=== PATIENT | male | born 1930 | race Caucasian/White ===

== ENCOUNTER 2017-06-13 23:19 | Inpatient (IN) ==
--- NOTE | 2017-06-13 23:29 | Emergency Department Report ---
General Adult HPI - General Stated complaint: L Hip Poss Fract Time Seen by Provider: 06/13/17 23:29 Source: patient, EMS Mode of arrival: EMS Limitations: no limitations - History of Present Illness HPI narrative: 86-year-old male presents to the emergency department with the chief complaint of pain in his left hip. Patient has been experiencing left hip pain for the past week following a fall. Patient suffered another mechanical fall today. Patient states that he was in the bathroom getting up off the stool when he felt a sharp pain in his hip when he twisted causing him to fall and land on his left hip. He denies striking his head, neck pain, or loss of consciousness. He denies any other injury. Pain is moderate. Pain is dull. No radiation. Pain improves with rest and positioning and increases with movement. Patient does note that the pain improved with Fentanyl given by EMS prior to arrival to the ED. No other complaints or associated symptoms. He was at home when the incident occurred. Symptoms have been persistent in nature since onset. - Related Data Home Medications Medication Instructions Recorded Confirmed Simvastatin [Zocor] 20 mg PO HS #0 12/28/08 06/14/17 Glucosamine/D3/Boswellia Lulu 1 each PO DAILY #0 06/22/12 06/14/17 [Osteo Bi-Flex Caplet] Levothyroxine Sodium 25 mcg PO DAILY #0 08/22/14 06/14/17 Cholecalciferol (Vitamin D3) 2,000 unit PO DAILY 06/08/17 06/14/17 [Vitamin D3] Dabigatran [Pradaxa] 150 mg PO BID 06/08/17 06/14/17 Furosemide [Lasix] 40 mg PO DAILY 06/08/17 06/14/17 Lisinopril [Zestril] 5 mg PO DAILY 06/08/17 06/14/17 Multivit-Min/FA/Lycopen/Lutein 1 each PO DAILY 06/08/17 06/14/17 [Centrum Silver Tablet] Primidone [Mysoline] 100 mg PO TID 06/08/17 06/14/17 Vitamin B Complex Vit C No.4 1 tab PO DAILY 06/08/17 06/14/17 [Super B Complex] Allergies Allergy/AdvReac Type Severity Reaction Status Date / Time No Known Allergies Allergy Verified 06/14/17 00:53 Review of Systems Constitutional: Denies: fever, chills Eyes: Denies: eye pain, vision change ENT: Denies: ear pain, throat pain Cardiovascular: Denies: chest pain, palpitations Respiratory: Denies: cough, dyspnea Gastrointestinal: Denies: abdominal pain, nausea, vomiting, diarrhea Genitourinary: Denies: urgency, dysuria Musculoskeletal: Reports: arthralgia. Denies: back pain Integumentary: Denies: erythema, rash Neurological: Denies: headache, numbness, paresthesias Psychiatric: Denies: anxiety, depression Endocrine: Denies: polydipsia, polyuria Hematological/Lymphatic: Denies: easy bruising, lymphadenopathy Allergic/Immunologic: Denies: facial swelling, urticaria PFSH Patient Stated Medical History Cataracts Yes Glaucoma Yes Hx Benign Prostatic Yes Hyperplasia Osteoarthritis Yes: MILD Other Infectious Yes: NON HEALING FOOT WOUND Clinic Medical History (Last Reviewed 06/14/17 @ 04:06 by Faraz Quezada MD) HTN (hypertension) (Acute Medical) Idiopathic peripheral neuropathy (Acute Medical) Prostate cancer (Acute Medical) Tremor (Acute Medical) Congestive heart failure (Chronic Medical) Surgical History: Prostate Surgery. Pacemaker. Left Shoulder Surgery Family History: Family History (Last Reviewed 04/16/17 @ 09:47 by Tamara Eldridge MA) Mother Aneurysm Father Diabetes Sister Diabetes - Social History Smoking status: Never smoker Substance use type: does not use Alcohol intake frequency: a few times a month Housing: house Physical Exam - Limitations Limitations: no limitations - General General appearance: alert, in no apparent distress - Normal Exams: Head:: Normocephalic without trauma Eyes:: Pupils are PERRLA w/ EOMI, No scleral icterus, irritation, or foreign bodies noted ENMT:: No facial trauma, nasal exudates, pharyngeal erythema, or exudates are noted Dental: No fractured, loose, or missing teeth noted Neck:: Full range of motion (No midline tenderness or deformity of the cervical spine.), without adenopathy, JVD, bruits or thyromegaly Chest/Respirations:: Clear all hernandez, with good airflow, and symmetry bilaterally Cardiovascular:: Regular rate and rhythm, without murmur or gallop, Pulses 2+ all extremities, capillary refill, <2 seconds all extremities Abdomen:: Bowel sounds positive, soft, non-tender, non-distended, no hepatosplenomegaly, masses or bruits noted Lymphatic:: No lymphadenopathy, or lymphedema noted Musculoskeletal:: No tenderness (left hip - decreased range of motion secondary to pain. Generalized tenderness to palpation over the hip. Is intact. Sensation intact. Capillary refill less than 2. Skin is intact. No erythema. No edema. No other tenderness in the left lower extremity. All other extremities are unremarkable.), or deformity noted (back - no midline tenderness or deformity of the thoracic/lumbar spine.), good range of motion, all extremities Integumentary:: No rashes, hives, or bruising noted, hair and nails, without abnormality Neurological:: Patient is alert, and oriented, cranial nerves, motor/sensory/ cerebellar, exams w/o gross deficits, to observation Psychiatric:: Patient exhibits, appropriate attention, emotion and affect Course Vital Signs Temperature 98.7 F 06/13/17 23:21 Pulse Rate 87 06/13/17 23:21 Respiratory Rate 18 06/13/17 23:21 Blood Pressure 142/80 H 06/13/17 23:21 Pulse Oximetry 97 06/13/17 23:21 Temperature 96.5 F L 06/14/17 02:08 Pulse Rate 68 06/14/17 02:17 Respiratory Rate 18 06/14/17 02:17 Blood Pressure 134/73 06/14/17 02:15 Pulse Oximetry 95 06/14/17 02:17 Medical Decision Making - [facility] Narrative Medical decision making narrative: Imaging was reviewed in detail with the patient and family and questions are answered. He was given analgesic pain medication intravenously within 1 hour of arrival to the emergency department. Patient was discussed with Dr. Garcia of orthopedic surgery and recommendations are followed. Patient was discussed with Dr. Epperson of the hospitalist service and admitted to the service of Dr. Collier in improved condition. Dr. Quezada will perform the medical clearance at the time of admission due to the busy nature of the ED. Patient and family are in agreement with the current plan of management. Patient is admitted to the hospital in improved condition. No further orders from accepting or consulting physicians who were in agreement with the current plan of management. - Differential Diagnosis sprain, strain, fracture, dislocation - Radiology Data Pelvis with Left Hip X-ray - left femoral neck fracture. Disposition Clinical Impression: Fracture of hip Qualifiers: Encounter type: initial encounter Fracture type: closed Laterality: left Qualified Code(s): S72.002A - Fracture of unspecified part of neck of left femur , initial encounter for closed fracture [place]: [place] [facility] [place] Condition: Stable Time of Disposition: 01:00 (Admit. Dr. Quezada. ) - Seen By: physician
[2017-06-13] MEDS ORDERED: FentaNYL 100 MCG/2 ML INJECTION IVP ONE (23:35)
[2017-06-14] MEDS ORDERED: FentaNYL 100 MCG/2 ML INJECTION IVP ONE (01:03)
[2017-06-14] MEDS ORDERED: ONDANSETRON 4 MG/2 ML INJECTION IVP PRN (02:33)
[2017-06-14] MEDS: LR 1,000 ML IV SCH ×4 (02:39→23:27)
[2017-06-14 02:46] VITALS: BMI 26.3
[2017-06-14] MEDS: HYDROMORPHONE 2 MG/ML INJECTION IVP PRN ×3 (03:00→07:24)
--- NOTE | 2017-06-14 04:07 | History & Physical Report ---
History of Present Illness Date: 06/14/17 Chief complaint: hip pain HPI: The pt is a 86 yo otherwise very active gentleman who fell one week ago and was evaluated with a X-ray was told the hip was normal. Tonight the pt had a sudden pain in the left hip and fell backwards landing on his "butt". His son came to help him and call 911 and was brought to the ER where L hip films reveal hip hip fracture. Review of Systems All systems PM: 10-point ROS was reviewed, no additional remarkable complaints except Past Medical History Medical History: Medical History (Last Reviewed 06/14/17 @ 04:06 by Faraz Quezada MD) HTN (hypertension) Idiopathic peripheral neuropathy Prostate cancer Tremor Congestive heart failure Surgical History: Prostate Surgery. Pacemaker. Left Shoulder Surgery Family History: Family History (Last Reviewed 04/16/17 @ 09:47 by Tamara Eldridge MA) Mother Aneurysm Father Diabetes Sister Diabetes Family History: As Above (ok) - Social History Smoking status: Never smoker Medications Home Medications Medication Instructions Recorded Confirmed Type Simvastatin [Zocor] 20 mg PO HS #0 12/28/08 06/14/17 History Glucosamine/D3/Boswellia Lulu 1 each PO DAILY #0 06/22/12 06/14/17 History [Osteo Bi-Flex Caplet] Levothyroxine Sodium 25 mcg PO DAILY #0 08/22/14 06/14/17 History Cholecalciferol (Vitamin D3) 2,000 unit PO DAILY 06/08/17 06/14/17 History [Vitamin D3] Dabigatran [Pradaxa] 150 mg PO BID 06/08/17 06/14/17 History Furosemide [Lasix] 40 mg PO DAILY 06/08/17 06/14/17 History Lisinopril [Zestril] 5 mg PO DAILY 06/08/17 06/14/17 History Multivit-Min/FA/Lycopen/Lutein 1 each PO DAILY 06/08/17 06/14/17 History [Centrum Silver Tablet] Primidone [Mysoline] 100 mg PO TID 06/08/17 06/14/17 History Vitamin B Complex Vit C No.4 1 tab PO DAILY 06/08/17 06/14/17 History [Super B Complex] Allergies Allergy/AdvReac Type Severity Reaction Status Date / Time No Known Allergies Allergy Verified 06/14/17 00:53 Exam Vital Signs: Temperature 96.5 F L 06/14/17 02:08 Pulse Rate 68 06/14/17 02:17 Respiratory Rate 18 06/14/17 02:17 Blood Pressure 147/74 H 06/14/17 02:08 Pulse Oximetry 95 06/14/17 02:17 Height/Weight/BMI: Height 1.83 m Weight 88.1 kg Body Mass Index 26.3 - Constitutional Present: no acute distress, well nourished, well developed - Routine HEENT Exam Head: Present: normocephalic - Routine Neck Exam Present: supple - Routine Respiratory Exam Present: CTA bilaterally. Absent: accessory muscle use - Routine Cardiovascular Exam Present: RRR, no murmur - Routine Abdominal Exam Present: soft, normoactive bowel sounds, non tender - Routine Skin Exam Present: intact - Routine Neurological Exam Present: alert, oriented X3 Assessment and Plan (1) Hip fracture Current visit: Yes Status: Acute Assessment and Plan: will admit for pain control, ortho has been consulted, NPO for possible surgery in am, IVF,The pt is clear medically for surgery. - Physician Narrative Narrative: Date: 06/14/17 Time: 0404 Hospital Course Summary Disclaimer: The visit summary below is not to be considered part of the above Progress Note.
[2017-06-14] MEDS: ACETAMINOPHEN 325 MG TABLET PO PRN ×2 (10:29→16:51)
[2017-06-14] MEDS: LISINOPRIL 5 MG TABLET PO SCH (10:41)
[2017-06-14] MEDS: FUROSEMIDE 40 MG TABLET PO SCH (10:41)
[2017-06-14] MEDS: LEVOTHYROXINE 25 MCG TABLET PO SCH (10:41)
[2017-06-14] MEDS: ENOXAPARIN 40 MG/0.4 ML INJECTION SQ SCH (10:41)
[2017-06-14] MEDS: TRAMADOL 50 MG TABLET PO PRN ×3 (11:33→23:34)
--- NOTE | 2017-06-14 13:36 | Orthopedic History & Physical ---
Orthopedic HPI - HPI Comments Mr. Alonzo is an active 86-year-old gentleman who lives independently. He fell one week ago was seen in the emergency room x-rays were negative for fracture. He continues to have pain since then. Last night when he was getting off of the toilet and had a sharp pain in his left hip and then collapsed. He was brought to the emergency room and found to have a left displaced femoral neck fracture. He is admitted to the hospitalist and I was consult for management of his fracture. [facility] Patient Stated Medical History Cataracts Yes Glaucoma Yes Hx Benign Prostatic Yes Hyperplasia Osteoarthritis Yes: MILD Other Infectious Yes: NON HEALING FOOT WOUND Clinic Medical History (Last Reviewed 06/14/17 @ 04:06 by Faraz Quezada MD) HTN (hypertension) (Acute Medical) Idiopathic peripheral neuropathy (Acute Medical) Prostate cancer (Acute Medical) Tremor (Acute Medical) Congestive heart failure (Chronic Medical) Surgical History: Prostate Surgery. Pacemaker. Left Shoulder Surgery Family History: Family History (Last Reviewed 04/16/17 @ 09:47 by Tamara Eldridge MA) Mother Aneurysm Father Diabetes Sister Diabetes - Social History Smoking status: Never smoker Substance use type: does not use Alcohol intake frequency: a few times a month Housing: house Review of Systems - Constitutional Constitutional: Absent: chills, fever(s), night sweats - Cardiovascular Cardiovascular: Absent: chest pain, palpitations - Respiratory Respiratory: Absent: cough, dyspnea - Gastrointestinal Gastrointestinal: Absent: abdominal pain, nausea, vomiting - Musculoskeletal Musculoskeletal: Present: as per HPI - Integumentary/Breasts Integumentary: Absent: lesions, rash - Neurological Neurological: Absent: numbness, tingling Medications Home Medications Medication Instructions Recorded Confirmed Type Simvastatin [Zocor] 20 mg PO HS #0 12/28/08 06/14/17 History Glucosamine/D3/Boswellia Lulu 1 each PO DAILY #0 06/22/12 06/14/17 History [Osteo Bi-Flex Caplet] Levothyroxine Sodium 25 mcg PO DAILY #0 08/22/14 06/14/17 History Cholecalciferol (Vitamin D3) 2,000 unit PO DAILY 06/08/17 06/14/17 History [Vitamin D3] Dabigatran [Pradaxa] 150 mg PO BID 06/08/17 06/14/17 History Furosemide [Lasix] 40 mg PO DAILY 06/08/17 06/14/17 History Lisinopril [Zestril] 5 mg PO DAILY 06/08/17 06/14/17 History Multivit-Min/FA/Lycopen/Lutein 1 each PO DAILY 06/08/17 06/14/17 History [Centrum Silver Tablet] Primidone [Mysoline] 100 mg PO TID 06/08/17 06/14/17 History Vitamin B Complex Vit C No.4 1 tab PO DAILY 06/08/17 06/14/17 History [Super B Complex] Allergies Allergy/AdvReac Type Severity Reaction Status Date / Time No Known Allergies Allergy Verified 06/14/17 00:53 Exam - Constitutional Vital Signs: Temperature 96.2 F L 06/14/17 07:59 Pulse Rate 74 06/14/17 07:59 Respiratory Rate 16 06/14/17 07:59 Blood Pressure 140/75 H 06/14/17 07:59 Pulse Oximetry 100 06/14/17 07:59 General: cooperative, no acute distress, well developed, well groomed Nutritional Appearance: well nourished Orientation: alert - Psych Mood: normal Affect: normal Attitude: cooperative - LLE Skin: no rashes or lesions noted Neurological: no deficits Vascular: dorsalis pedis pulse within normal limits - Labs Result Diagrams: 06/14/17 13:09 06/14/17 13:09 Abnormal lab results 06/14/17 06/14/17 06/14/17 Range/Units 13:09 13:09 13:09 RBC 3.65 L (4.50-5.90) M/MM3 Hgb 10.6 L (13.5-17.5) GM/DL Hct 33.3 L (41-53) % MPV 9.2 L (9.4-12.4) UM3 Lymph % (Auto) 22.7 L (23-45) % [place] % (Auto) 10.8 H (0-9.0) % Eos % (Auto) 6.2 H (0-4) % INR 1.27 H (0.92-1.18) Albumin 3.4 L (3.5-5.0) g/dL H & H 06/14/17 Range/Units 13:09 Hgb 10.6 L (13.5-17.5) GM/DL Hct 33.3 L (41-53) % Coagulation 06/14/17 Range/Units 13:09 INR 1.27 H (0.92-1.18) - Diagnostic results Hip x-ray: image reviewed Orthopedic Assessment and Plan (1) Hip fracture Status: Acute Qualifiers: Encounter type: initial encounter Fracture type: closed Laterality: left Qualified Code(s): S72.002A - Fracture of unspecified part of neck of left femur, initial encounter for closed fracture Assessment and Plan: Given that he is on Pradaxa I elected to wait one day to perform surgery. I recommended surgical fixation of his hip fracture with a hemiarthroplasty on Friday morning. I reviewed with him the surgery and the postoperative course. Also spoke to his son over the phone. All questions were answered. Hospital Course Summary Disclaimer: The visit summary below is not to be considered part of the above Progress Note.
[2017-06-14] MEDS: PRIMIDONE 50 MG TABLET PO SCH ×2 (14:28→20:49)
--- NOTE | 2017-06-14 17:12 | Anesthesia Preoperative Report ---
Anesthesia Preoperative Record - Date and Time Date: 06/14/17 Preoperative Diagnosis: femoral fracture Proposed Procedure: femoral head replacement NPO Since Date: 06/14/17 NPO Since Time: 22:00 Allergies/Adverse Reactions: Allergies Allergy/AdvReac Type Severity Reaction Status Date / Time No Known Allergies Allergy Verified 06/14/17 00:53 - Vital Signs Vital Signs: Temperature 96.2 F L 06/14/17 07:59 Pulse Rate 71 06/14/17 16:54 Respiratory Rate 16 06/14/17 16:54 Blood Pressure 133/76 06/14/17 16:54 Pulse Oximetry 98 06/14/17 16:54 Height and Weight: Height 1.83 m Weight 88.1 kg Body Mass Index 26.3 - Medications Inpatient Medications: Current Medications Acetaminophen (Tylenol) 650 mg PO Q8H PRN PRN Reason: Pain Last Admin: 06/14/17 16:51 Dose: 650 mg Enoxaparin Sodium (Lovenox) 40 mg SQ DAILY [facility] Last Admin: 06/14/17 10:41 Dose: 40 mg Furosemide (Lasix 40 Mg Tab) 40 mg PO DAILY [facility] Last Admin: 06/14/17 10:41 Dose: 40 mg Hydromorphone HCl (Dilaudid) 0.5 mg IVP Q2H PRN PRN Reason: Pain Last Admin: 06/14/17 07:24 Dose: 0.5 mg Lactated Ringer's (Lactated Ringers) 1,000 mls @ 100 mls/hr IV .Q10H [facility] Last Admin: 06/14/17 13:00 Dose: 100 mls/hr Levothyroxine Sodium (Synthroid) 25 mcg PO ACB [facility] Last Admin: 06/14/17 10:41 Dose: 25 mcg Lisinopril (Prinivil) 5 mg PO DAILY [facility] Last Admin: 06/14/17 10:41 Dose: 5 mg Ondansetron HCl (Zofran) 4 mg IVP Q6H PRN PRN Reason: Nausea &/or vomiting Primidone (Mysoline) 100 mg PO TID [facility] Last Admin: 06/14/17 14:28 Dose: 100 mg Simvastatin (Zocor) 20 mg PO HS [facility] Tramadol HCl (Ultram) 50 - 100 mg PO Q6H PRN Last Admin: 06/14/17 11:33 Dose: 50 mg Home Medications: Home Medications Medication Instructions Recorded Confirmed Type Simvastatin [Zocor] 20 mg PO HS #0 12/28/08 06/14/17 History Glucosamine/D3/Boswellia Lulu 1 each PO DAILY #0 06/22/12 06/14/17 History [Osteo Bi-Flex Caplet] Levothyroxine Sodium 25 mcg PO DAILY #0 08/22/14 06/14/17 History Cholecalciferol (Vitamin D3) 2,000 unit PO DAILY 06/08/17 06/14/17 History [Vitamin D3] Dabigatran [Pradaxa] 150 mg PO BID 06/08/17 06/14/17 History Furosemide [Lasix] 40 mg PO DAILY 06/08/17 06/14/17 History Lisinopril [Zestril] 5 mg PO DAILY 06/08/17 06/14/17 History Multivit-Min/FA/Lycopen/Lutein 1 each PO DAILY 06/08/17 06/14/17 History [Centrum Silver Tablet] Primidone [Mysoline] 100 mg PO TID 06/08/17 06/14/17 History Vitamin B Complex Vit C No.4 1 tab PO DAILY 06/08/17 06/14/17 History [Super B Complex] Is Patient on Beta Niya?: No - Medical History Cardiovascular: Reports: Abnormal EKG, Arrhythmia, Congestive Heart Failure, Coronary Artery Disease (PPM and Stents), Heart Murmur Neuro/Musculoskeletal: Reports: HX.MS.OSAR (MILD) Renal/Endocrine: Reports: Thyroid Disease Other History: Reports: Cancer (PROSTATE) - Surgical History HEENT Surgeries: Reports: Eye Surgery Cardiac Surgeries/Treatments: Reports: Cardiac Catheterization (STENTS), Pacemaker GI Surgery/Treatments: Reports: Appendectomy Surgery/Treatment: REPORT: Prostatectomy Anesthesia Reactions: None Hx Family Anesthesia Reaction: No History of Motion Sickness: No - Social History Smoking Status: Never smoker Hx Chewing Tobacco Use: No Second Hand Exposure: No Substance Use Type: does not use Alcohol Intake Frequency: a few times a month - Pertinent Findings Laboratory: CBC and BMP 06/14/17 13:09 06/14/17 13:09 BMP 06/14/17 13:09 Sodium 142 Potassium 4.5 Chloride 103 Carbon Dioxide 30 BUN 18.0 Creatinine 0.8 Glucose 109 Calcium 9.2 Liver Function 04/28/18 Range/Units 13:09 Total Bilirubin 0.30 (0.20-1.30) MG/DL AST 20 (17-59) U/L ALT 13 (1-50) U/L Alkaline Phosphatase 80 (38-126) U/L Albumin 3.4 L (3.5-5.0) g/dL EKG: Sinus Rhythm (PPM) - Physical Exam Respiratory Exam: Present: lungs clear - Airway Assessment Mallampati Score: II TMD: 3 Fingerbreadths Neck Extension: good Teeth: patial upper dentures Overall Assessment: no airway concerns - ASA ASA Score: 3 - Plan Anesthesia: General Inhalation Gases - Discussion Discussion: Discussed risks/options/alternatives of anesthesia and questions answered. Patient consents. Nursing pain assessment noted. Present for Discussion: family member Attestation Statement: Prior to the delivery of any anesthetic medication, I examined the patient, developed the plan, obtained the patient's consent and discussed the risk and benefits of the procedure with the patient/guardian.
[2017-06-14] MEDS: SIMVASTATIN 20 MG TABLET PO SCH (20:49)
[2017-06-15] MEDS: LEVOTHYROXINE 25 MCG TABLET PO SCH (05:42)
[2017-06-15] MEDS ORDERED: FALL RISK - PHARMACY CONSULT MC ONE (07:21)
[2017-06-15] MEDS ORDERED: LIDOCAINE 1% (10mg/ml) 30ml SDV INJ ONE (07:24)
[2017-06-15] MEDS ORDERED: BUPIVACAINE 0.25% (2.5mg/ml) PF 30ml INJECTION ONE (07:24)
[2017-06-15] MEDS ORDERED: SUCCINYLCHOLINE 20mg/mL 10mL INJECTION ONE (07:28)
[2017-06-15] MEDS ORDERED: ROCURONIUM 50 MG/5 ML INJECTION IVP ONE (07:28)
[2017-06-15] MEDS ORDERED: PROPOFOL 20 ML ONE (07:28)
[2017-06-15] MEDS: LR 1,000 ML IV SCH ×6 (07:43→23:35)
[2017-06-15] MEDS ORDERED: CEFAZOLIN 1 G INJECTION IVP ONE (07:43)
[2017-06-15] MEDS ORDERED: SALINE FLUSH 10ml SYRINGE ONE (08:16)
[2017-06-15] MEDS ORDERED: PHENYLEPHRINE INJ 10 MG/ML VIAL IV ONE (08:16)
[2017-06-15] MEDS ORDERED: VANCOMYCIN 1,000 MG INJECTION IAR ONE (08:24)
[2017-06-15] MEDS ORDERED: BUPIV 0.25% 30ml/LIDO 1% 30ml MIXTURE ID ONE (08:25)
[2017-06-15] MEDS: ENOXAPARIN 40 MG/0.4 ML INJECTION SQ SCH (08:31)
[2017-06-15] MEDS: LISINOPRIL 5 MG TABLET PO SCH (08:31)
[2017-06-15] MEDS: FUROSEMIDE 40 MG TABLET PO SCH (08:31)
[2017-06-15] MEDS: PRIMIDONE 50 MG TABLET PO SCH ×3 (08:31→21:27)
[2017-06-15] MEDS ORDERED: TRANEXAMIC ACID 1,000 MG in NS 100 ML TOP ONE (08:32)
[2017-06-15] MEDS ORDERED: FentaNYL 250 MCG/5 ML INJECTION ONE (08:38)
[2017-06-15] MEDS ORDERED: VANCOMYCIN 1,000 MG INJECTION ONE (08:46)
[2017-06-15] MEDS ORDERED: SUGAMMADEX 200mg/2ml INJECTION IVP ONE (08:58)
--- NOTE | 2017-06-15 09:07 | XRay Report ---
Indication: Pain, injury PROCEDURE: XR pelvis w/ 2 view LT hip: Encounter: Initial Comparison: None Findings/ Impression: Closed posttraumatic mildly displaced fracture of the subcapital left femoral neck. No additional acute fracture or dislocation seen. Bony demineralization. Prostatectomy clips in the pelvis. 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 .
[2017-06-15] MEDS ORDERED: NOZIN NASAL SWAB NAS ONE (10:25)
--- NOTE | 2017-06-15 10:41 | Anesthesia Postoperative Note ---
- Date and Time Date: 06/15/17 Time: 10:40 - Status Patient Participated in Evaluation: Patient Participated in Person Vital Signs: Temperature 98.3 F 06/15/17 10:17 Pulse Rate 70 06/15/17 10:15 Respiratory Rate 15 06/15/17 10:15 Blood Pressure 121/58 06/15/17 10:15 Pulse Oximetry 93 06/15/17 10:15 Respiratory Function: Airway Patent Cardiovascular Function: Regular Pulse EKG: Sinus Rhythm (PPM v paced) Mental Status: Alert and Oriented Pain Intensity: 0 Hydration: Taking PO Fluids, IV Infusing Complications During Recover: None Apparent - Follow-Up Instructions Instructions: Per Surgeon
--- NOTE | 2017-06-15 10:47 | Progress Note ---
- Date 06/15/17 Subjective: 86y/o very pleasant male pt with h/o a fall on 06/08/17 when he tripped. He presented to the ED. X Rays did not show evidence of a fracture. He has tried to do physical therapy but the pain became progressively worse. Last evening he had difficulty getting out of his chair to go to the BR. He was finally successful and walked with his walker to the BR. When he got up from the stool, he had a very sharp pain in the left hip and he fell to the floor landing on his butt. He was unable to get back up and EMS was called. Pt taken to the ED. Hip XRay did show a subcapital left femoral neck fracture. When seen by me this am he is fairly comfortable. He is anxious to get his leg fixed. He denies feeling ill in any way. He says prior to his fall on the he was a very active. Mows own yard, goes dancing and travels quite a bit. He denies any fever or chills. He denies any cough or sputum production. He denies any shortness of breath, dismount exertion, PND or orthopnea. He denies any chest pain, pressure or tightness. He denies palpitations. He denies nausea, vomiting, diarrhea, constipation, black tarry stools or bloody stools. He denies any genitourinary symptoms. He denies any problems with lower extremity edema. Patient has been seen by orthopedic surgery and plans on surgery Friday ( tomorrow) Pt seen this am post op left hip hemiarthroplasty. He is doing well. Pain controlled. He denies any shortness of breath, chest pain or palpitations. No nausea or vomiting. Son at bedside. Objective Vital signs: Temperature 98.3 F 06/15/17 10:17 Pulse Rate 70 06/15/17 10:15 Respiratory Rate 15 06/15/17 10:15 Blood Pressure 121/58 06/15/17 10:15 Pulse Oximetry 93 06/15/17 10:15 Height/Weight/BMI: Height 1.83 m Weight 89 kg Body Mass Index 26.3 Comments: Gen: alert and oriented. NAD Skin: warm and dry HEENT: NC/AT PERRL, EOMI, Sclera, lids and conjunctiva wnl, MMM, OP clear Neck: supple. No JVD, Carotids 2+ without bruits. Lungs: clear, No rales, rhonchi, wheezes. CV: regular. 2/6 systolic murmur Abd: soft. NT/ND, +BS MS: No edema. Post op Left hip. The base of the left great toe and medial ball of the foot is dressed. Neuro: No focal deficit Psy: normal mood and affect Results - Labs CBC & Chem 7: 06/15/17 04:23 06/15/17 04:23 Assessment and Plan (1) Hip fracture Current visit: Yes Status: Acute Assessment and Plan: 1. Hip fracture status post mechanical fall -Pradaxa on hold -S/P left hip hemiarthroplasty 2. Hypertension -continue lisinopril 5 mg daily -Good control 3. Dyslipidemia -continue Zocor 20 mg QHS 4. Hypothyroidism -continue Synthroid 25 g daily -check TSH 5. Action tremor -continue primidone 100 mg TID 6. Atrial fibrillation status post pacemaker -hold Dabigatran until okay to start restart per orthopedic surgery 7. Diastolic dysfunction grade 2, pulmonary hypertension -continue Lasix 40 mg daily 8. Coronary artery disease-Dr. Villaseñor is his valuer -on beta marva, master inhibitor, Statin, not on aspirin per cardiology instruction 9. Gastroesophageal reflux disease by history -not on treatment 10. Left medial foot ulcer -Getting wound therapy most recently 05/19/17 -will consult wound and skin 11. Prophylaxis -SCD's, PPI, will resume Pradaxa when okay with orthopedic surgery Pt has charted h/o BELLA which he denies and is not willing to be evaluated for such as he states he wound not wear a CPAP anyway. Pt likely will need IRU - Physician Narrative Narrative: Date: 06/15/17 Time: 1042 Hospital Course Summary Disclaimer: The visit summary below is not to be considered part of the above Progress Note.
[2017-06-15] MEDS: ACETAMINOPHEN 325 MG TABLET PO PRN (12:22)
[2017-06-15] MEDS: NOZIN NASAL SWAB NAS SCH ×2 (14:21→21:27)
[2017-06-15] MEDS: TRAMADOL 50 MG TABLET PO PRN (15:39)
[2017-06-15] MEDS: CEFAZOLIN 2 G in NS 100 ML IV SCH ×2 (16:58→23:35)
[2017-06-15] MEDS ORDERED: ENOXAPARIN 40 MG/0.4 ML INJECTION SQ ONE (18:00)
[2017-06-15] MEDS ORDERED: SENNOSIDES 8.6 MG TABLET PO SCH (21:00)
[2017-06-15] MEDS: SIMVASTATIN 20 MG TABLET PO SCH (21:28)
[2017-06-15] MEDS: DOCUSATE SODIUM 100 MG CAPSULE PO SCH (21:28)
[2017-06-16] MEDS: ACETAMINOPHEN 325 MG TABLET PO PRN (01:06)
[2017-06-16] MEDS: LR 1,000 ML IV SCH (05:37)
[2017-06-16] MEDS: LEVOTHYROXINE 25 MCG TABLET PO SCH (05:55)
[2017-06-16] MEDS: NOZIN NASAL SWAB NAS SCH (05:55)
[2017-06-16 07:39] VITALS: RESP 14
--- NOTE | 2017-06-16 07:46 | XRay Report ---
Indication: postoperative image PROCEDURE: XR pelvis w/ 1 view LT hip: Encounter: Initial Comparison: June 08, 2017 Findings: Postoperative changes of left femoral head replacement are seen. There is expected postoperative subcutaneous gas. No evidence of hardware failure or acute fracture. No retained radiopaque surgical instruments or sponges seen. Pelvic prostatectomy clips. Impression: New left femoral head prosthesis without evidence of immediate complication. .
[2017-06-16] MEDS: PRIMIDONE 50 MG TABLET PO SCH (08:08)
[2017-06-16] MEDS: LISINOPRIL 5 MG TABLET PO SCH (08:08)
[2017-06-16] MEDS: FUROSEMIDE 40 MG TABLET PO SCH (08:08)
[2017-06-16] MEDS: DOCUSATE SODIUM 100 MG CAPSULE PO SCH (08:08)
--- NOTE | 2017-06-16 08:18 | Orthopedic Progress Note ---
Date: Date: 06/16/17 Time: 812 Subjective/Severity of Illness: Mr. Tom is lying in bed this morning when I visit. His pain has been well controlled with Tramadol. Was up ambulating last night with wheelchair and this morning to the bathroom. Denies any nausea, CP, SOA. No concerns. Hgb 9.5 Orthopedic Exam Vital signs: Temperature 98.1 F 06/16/17 07:38 Pulse Rate 72 06/16/17 07:38 Respiratory Rate 14 06/16/17 07:38 Blood Pressure 143/74 H 06/16/17 07:38 Pulse Oximetry 99 06/16/17 07:38 - Constitutional General Appearance: Present: alert, orientated x3, cooperative, well developed, well nourished - Respiratory Exam Present: non-labored - Cardiovascular Exam Present: pedal pulses intact - Extremities Exam Present: pulses intact. Absent: edema, calf tenderness - Dressing Dressing: dry, intact, no drainage Comments: Mepilex left hip c/d/i. - Integumentary Exam Comments: Mepilex dressing c/d/i to left dorsal foot - Neurological Exam Present: intact to light touch, no deficits - Psychiatric Exam Present: alert, oriented - Labs Result Diagrams: 06/16/17 04:25 06/16/17 04:25 Abnormal lab results 06/16/17 06/16/17 Range/Units 04:25 04:25 Hgb 9.5 L (13.5-17.5) GM/DL Hct 30.2 L (41-53) % Glucose 127 H (75-110) MG/DL H & H 06/14/17 06/15/17 06/16/17 Range/Units 13:09 04:23 04:25 Hgb 10.6 L 10.6 L 9.5 L (13.5-17.5) GM/DL Hct 33.3 L 33.8 L 30.2 L (41-53) % Coagulation 06/14/17 Range/Units 13:09 INR 1.27 H (0.92-1.18) Orthopedic Assessment and Plan (1) Hip fracture Status: Acute Qualifiers: Encounter type: initial encounter Fracture type: closed Laterality: left Qualified Code(s): S72.002A - Fracture of unspecified part of neck of left femur, initial encounter for closed fracture Assessment and Plan: Patient had Lovenox 40mg SQ, will discontinue and restart Pradaxa today for VTE prophylaxis. SCD's for added protection. PT/OT services to improve independent function. Discharge Planning per Case Management. (2) Foot ulcer, left Status: Acute Assessment and Plan: Wound clinic consult for left foot ulcer. Aquacel and mepilex applied in OR. Change q2 days - Anticoagulation Therapy Anticoagulation: Resume home anticoagulant Hospital Course Summary Disclaimer: The visit summary below is not to be considered part of the above Progress Note.
--- NOTE | 2017-06-16 08:38 | Operative Note ---
DATE OF OPERATION 06/15/2017 PREOPERATIVE DIAGNOSIS Left displaced femoral neck fracture. POSTOPERATIVE DIAGNOSIS Left displaced femoral neck fracture. PROCEDURE Left hip hemiarthroplasty, cemented. SURGEON Mian Sood MD LOOP TENDER Clarita Reynoso APRN COMPLICATIONS None ANESTHESIA General EBL AND FLUIDS Please see Anesthetic records. DESCRIPTION OF PROCEDURE Mr. Tom and his left hip were identified and marked in his hospital room bed. He was brought back to the operating suite and placed supine on the operating table. He was placed under general anesthesia and placed into the lateral decubitus position. Hip were used and an axillary roll was used as well. His left lower extremity was prepped and draped in my normal sterile fashion and then time-out was performed. A posterior approach was utilized. Sharp dissection was carried through the skin and subcutaneous tissue down to the muscle fascia which was then split in line with the skin incision. A Charnley retractor was placed. A capsulotomy was performed just inferior to the piriformis tendon. The capsulotomy was tagged at the corner. Fracture site was easily identified and I made an osteotomy about 1 cm distal to the fracture site. The head was removed and measured on the back table. We trialed the acetabulum at a 54 and a 53. The 53 felt better. We then prepared the proximal femur with a cookie cutter followed by reaming and then broaching to a size 8. We trialed with an 8 and a 53 head and a 0 neck. This felt very good. He was stable and had great leg length. The bone was then prepared for cementing and a 127 degree cemented size 8 CHEMO stem was placed and held in the proper rotation as the cement cured. After the cement cured, we trialed again with a 0 neck. This again felt good, so after a final irrigation, a final 0 53 mm metal head was placed a final reduction performed. Local anesthetic was injected throughout the capsule and the subcutaneous tissues. One gram of TXA was placed into the hip joint and allowed to sit for five minutes. The capsulotomy was repaired with #1 Ethibond. The muscle fascia was repaired with #1 Vicryl. I then allowed my temporary office assistant to close the subcutaneous tissue and skin with 2-0 Vicryl and 2-0 Monoderm quill suture. Sterile dressing will then be placed and he will be allowed to awake from general anesthesia and taken back to the recovery room under the care of Anesthesia. He tolerated the procedure well and there were no complications. WANG
[2017-06-16] MEDS ORDERED: POLYETHYL GLYCOL 3350 17gm PACKET PO SCH (09:00)
[2017-06-16] MEDS ORDERED: SENNOSIDES 8.6 MG TABLET PO PRN (09:40)
--- NOTE | 2017-06-16 10:21 | Discharge Summary ---
Discharge Information Date of admission: 06/14/17 02:33 Anticipated date of discharge: 06/16/17 Attending Physician: Yazan Garcia MD Primary care physician: Dr Choudhury Consults: Dr Sood- Orthopedics - Discharge Diagnosis (1) Hip fracture Status: Acute Hip fracture- Left femoral neck Left foot ulcer Hypertension Diastolic dysfunction- grade 2 Hx of Atrial fibulation Dyslipidemia Hypothyroidism Tremor GERD Chronic Anticoagulation - Procedures Procedures: Left hip hemiarthroplasty- 06/15/17- Dr Sood - Laboratory Labs: 06/16/17 04:25 06/16/17 04:25 - Microbiology None - Radiology Radiology: 06/13/17- Left Hip and Pelvis Xray Impression: Closed posttraumatic mildly displaced fracture of the subcapital left femoral neck. No additional acute fracture or dislocation seen. Bony demineralization. Prostatectomy clips in the pelvis. 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 06/15/17- Left hip and pelvis Xray Impression: New left femoral head prosthesis without evidence of immediate complication. - Pathology None History of Present Illness HPI: The pt is a 86 yo otherwise very active gentleman who fell one week ago and was evaluated with a X-ray was told the hip was normal. Tonight the pt had a sudden pain in the left hip and fell backwards landing on his "butt". His son came to help him and call 911 and was brought to the ER where L hip films reveal hip hip fracture. Objective Vital signs: Temperature 98.1 F 06/16/17 07:38 Pulse Rate 72 06/16/17 07:38 Respiratory Rate 14 06/16/17 07:38 Blood Pressure 143/74 H 06/16/17 07:38 Pulse Oximetry 99 06/16/17 07:38 Height/Weight/BMI: Height 1.83 m Weight 93.3 kg Body Mass Index 26.3 - Constitutional Present: no acute distress, well nourished, well developed - Routine HEENT Exam Eye: Present: EOMI, PERRL ENT: Present: mucous membranes moist, dentition normal - Routine Respiratory Exam Present: CTA bilaterally. Absent: wheezes - Routine Cardiovascular Exam Present: RRR, S1, S2. Absent: murmur - Routine Abdominal Exam Present: soft, normoactive bowel sounds, non distended. Absent: tenderness - Routine Extremities Exam Comments: Left hip fracture - Routine Skin Exam Present: intact, dry, warm - Routine Neurological Exam Present: alert, oriented X3, CN II-XII intact, moving all extremities - Routine Lymphatic Exam Lymphatic: Absent: adenopathy - Routine Psychiatric Exam Present: normal affect, normal thought process, cooperative Hospital Course This is a general summary of the patient's hospital course. For more details refer to the complete medical record. Hospital course: 06/14/17- Admission 1. Hip fracture status post mechanical fall -Pradaxa on hold -ortho has been consulted-plan for surgery 06/15/17 -patient is a reasonable risk for this intermediate risk surgery. Prior to the fall on the he was able to do well over 4 METS of activity 2. Hypertension -continue lisinopril 5 mg daily 3. Dyslipidemia -continue Zocor 20 mg QHS 4. Hypothyroidism -continue Synthroid 25 g daily -check TSH 5. Action tremor -continue primidone 100 mg TID 6. Atrial fibrillation status post pacemaker -hold Dabigatran until okay to start restart per orthopedic surgery 7. Diastolic dysfunction grade 2, pulmonary hypertension -continue Lasix 40 mg daily 8. 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 Gastroesophageal reflux disease by history -not on treatment 10. Left medial foot ulcer -Getting wound therapy most recently 05/19/17 -will consult wound and skin 11. Prophylaxis -SCD's, PPI, will resume Pradaxa when okay with orthopedic surgery Pt has charted h/o BELLA which he denies and is not willing to be evaluated for such as he states he wound not wear a CPAP anyway. 06/15/17 1. Hip fracture status post mechanical fall -Pradaxa on hold -S/P left hip hemiarthroplasty 2. Hypertension -continue lisinopril 5 mg daily -Good control 3. Dyslipidemia -continue Zocor 20 mg QHS 4. Hypothyroidism -continue Synthroid 25 g daily -check TSH 5. Action tremor -continue primidone 100 mg TID 6. Atrial fibrillation status post pacemaker -hold Dabigatran until okay to start restart per orthopedic surgery 7. Diastolic dysfunction grade 2, pulmonary hypertension -continue Lasix 40 mg daily 8. 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 Gastroesophageal reflux disease by history -not on treatment 10. Left medial foot ulcer -Getting wound therapy most recently 05/19/17 -will consult wound and skin 11. Prophylaxis -SCD's, PPI, will resume Pradaxa when okay with orthopedic surgery Pt has charted h/o BELLA which he denies and is not willing to be evaluated for such as he states he wound not wear a CPAP anyway. Pt likely will need IRU 06/16/17- Discharge Cornelio is seen today with daughter at his side. Overall he states he is feeling good. He does have some mild left hip pain postoperatively with ambulation. However, it resolves at rest. He is eating well, he is urinating well, bowels have not yet moved postoperatively. Left foot ulcer has been managed by wound care. Orthopedic Team does give the okay to resume chronic anticoagulation, Pradaxa today. Planning for discharge to IRU today for ongoing strengthening and postoperative improvement. Hospitalist services. Will continue to follow patient during his stay on the rehabilitation unit. At time of discharge. He will return to primary care, Dr. Choudhury Time spent with patient: discharge greater than 30 minutes Resuscitation Status: Full Code Discharge Plan - Discharge Disposition Discharge Date: 06/16/17 Disposition: 64 To [facility] [place] IN[facility] *Condition: Stable Reason For Visit (Visit label in EMR): femoral fracture - Discharge Medications *Discharge Medications: Continue Simvastatin [Zocor] 20 mg PO HS #0 Glucosamine/D3/Boswellia Lulu [Osteo Bi-Flex Caplet] 1 each PO DAILY #0 Levothyroxine Sodium 25 mcg PO DAILY #0 Vitamin B Complex Vit C No.4 [Super B Complex] 1 tab PO DAILY Multivit-Min/FA/Lycopen/Lutein [Centrum Silver Tablet] 1 each PO DAILY Cholecalciferol (Vitamin D3) [Vitamin D3] 2,000 unit PO DAILY Primidone [Mysoline] 100 mg PO TID Dabigatran [Pradaxa] 150 mg PO BID Lisinopril [Zestril] 5 mg PO DAILY Furosemide [Lasix] 40 mg PO DAILY - Discharge Packet/Instructions *Diet: Resume normal diet as tolerated *Activity: Continue the exercises you were given in the hospital three times a day. Your therapist will provide you with a home therapy program prior to your hospital discharge. As you feel stronger, increase the number of repetitions you do in each session. Please check with us before you swim, use a whirlpool, drive or ride a bicycle *Pain Management/Treatment: Ice packs may be used, and will also help with the pain. *Wound Care: In most cases, a Mepilex dressing will be placed at the time of surgery. This dressing will not need to be covered while showering. Leave dressing in place until your follow-up appointment as long as it remains clean, dry and stuck down well around the edges. Call your Doctor if you encounter a problem with your dressing. Please avoid submerging your incision until it is completely healed, once the Mepilex dressing is removed. This includes bathtubs , swimming pools, and hot tubs. DO NOT USE ALCOHOL, PEROXIDE, OR OINTMENTS of any kind on your incision. *Expected Signs/Symptoms: Some swelling around the incision, as well as in your feet and legs is normal. To help with this, elevate your feet on a footstool when sitting in a chair, and do the ankle pumps and circles whenever you are sitting still. Muscle action helps to move collected fluid out of the tissues and improve circulation. Ice packs may be used, and will also help with the pain. Report any persistent swelling, calf tenderness, increase in pain, or pain in the calf with warmth, or redness to your doctor. *Notify Physician if: Report any complications to my office immmediately. This includes excessive bleeding, wound breakdown, redness around the wound, uncontrolled pain, or fever over 101 on 3 different measurements. Eat a balanced diet and get plenty of rest. *During Business Hours Contact: If you have any questions or concerns, please call during regular office hours ([phone]). *After Business Hours Contact: If you have any problems or need to reach a physician after hours or on the weekend please call the hospital's main number [phone] to have your physician paged. *Pending Lab/Results: No Pending Lab - IRU/GEN Discharge/Transfer - Referrals/Follow Up *Referrals/Follow Up: Jesika Choudhury MD [Physician] - (Will need follow up after discharge from IRU) Mian Sood MD [Physician] - (Will need follow up 2 weeks after being discharged from IRU) - Patient Handouts - Dismissal Complete Discharge Instructions are:: Complete Physician Narrative - Narrative Physician: Yazan Garcia MD Attestation Narrative: Date: 06/16/17 Time: 1140 I have independently interviewed and examined patient prior to discharge. Chart reviewed. Case discussed with my BIAS MACHINE OPERATOR. Care plan developed with my supervision; agree with above. Doing well overall. Pain controlled - does hurt with activities/transfers, but feels pain is managed. Working well with therapy. Breathing well. No nausea or ab pain. Feels like needs to have bowel movement. Lungs: clear bilaterally CV: regular AB: soft nt/nd MSE: awake alert appropriate Plan: Medically stable for discharge to IRU for continuation of restorative modalities. Continue pain control. Continue with bowel motivation. Encourage pulmonary toilet. Patient to F/U with PCP 1 week post discharge from IRU. See orders for details.
[2017-06-16 12:02] VITALS: BP 120/65; PULSE 68; O2SAT 100
[2017-06-16 12:18] VITALS: TEMP 97.9
[2017-06-17] MEDS ORDERED: BISACODYL 10 MG SUPPOSITORY RECTALLY SCH (20:00)
== END 2017-06-16 12:56 | DRG 470 ==
LOC: ED 23:19 → SRG 06-14 01:55 → SUATTDRO 06-14 02:33
PROVIDERS: ADMIT Internal Medicine; ATTEND Hospitalist

== ENCOUNTER 2017-06-16 13:14 | Inpatient (IN) ==
[2017-06-16] MEDS ORDERED: SENNOSIDES 8.6 MG TABLET PO PRN (13:24)
[2017-06-16 13:29] VITALS: BMI 28.3
--- NOTE | 2017-06-16 14:04 | IRU History & Physical Report ---
HPI IRU Date: Date: 06/16/17 Time: 1401 Chief complaint: I broke my hip HPI: Mr. Tom is a very pleasant 86-year-old male whom I interviewed on acute inpatient rehabilitation. Referring physician is Dr. Lexy Collier. His primary care doctor is Dr. Jesika Choudhury. He reports that he had fallen at home on 06/07/2017. He was carrying some groceries and somehow lost his balance. He fell on his left side. He did not strike his head nor lose consciousness. He developed significant pain in the left hip and presented to the emergency department on 06/08/2017. At that location radiograph of the hip was unremarkable. He was sent home. Over the next several days he did go to physical therapy where he was seen on 2 or 3 occasions. Pain did progress well on physical therapy. Subsequently he fell again on 06/13/2017. He had gotten up off the toilet at home. He had started to take a few steps with his walker but suddenly had severe pain in the left hip. This caused him to fall back onto the toilet. He was brought to the emergency department where a mildly displaced left subcapital femoral neck fracture was noted on radiograph. Patient was admitted to the hospitalist service and orthopedics was consulted. The patient was taken to surgery on 06/15/[address] Mian Sood. At that time a left hip hemiarthroplasty was performed. Unfortunately, the patient does have a chronic wound involving the left foot, medial aspect of the first MP joint for the last 2 months. He has been seen by wound therapy. It is getting smaller but there is risk of infection in this regard. At the present time it does not appear to be infected however. A diagnosis of idiopathic peripheral neuropathy as noted on his chart but he denies any numbness, tingling or other abnormal sensations. He does not have history of diabetes. The patient does have history of atrial fibrillation. He also has a permanent pacemaker, single-chamber, in place. He carries a diagnosis of diastolic heart failure, grade 2. 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 Villaseñor. He has been on Pradaxa for the last 3-4 years. Patient does have some ecchymoses on the arms and is at risk for further bleeding in this regard. His hemoglobin has dropped from10.6 to 9.5, consistent with acute blood loss anemia. He has not received blood transfusions at this time. With regard to his heart failure, he is noted to have an 11 pound weight gain since his admission on 06/06/2017. He also carries a diagnosis of moderate pulmonary hypertension with estimation of pulmonary pressures around 48 mmHg. The patient does not know when his last echocardiogram was and I do not have a copy of this at present. His cardiac history is also remarkable for at least 2 stent placements 1 to LAD in 2010 another to RCA in 2011. He does have history of prostate cancer, status post total prostatectomy. He is also plagued by constipation at the present time. He has not had a bowel movement since being in the hospital and this is concerning for him. Patient lives in his own home independently prior to this admission. He lives in [facility]. He does have 2 steps to get into his home from the garage. There is a left-sided handrail to get into the house. He is extremely active and dances as well as rides a horse. Prior to this admission the patient was modified independent for eating but independent for all other activities except for toileting and bed/chair/wheelchair transfers which were at modified independent level. He did not use any assistive devices prior to admission. At the present time he is modified independent for eating but requires supervision for upper body dressing, maximum assistance for lower body dressing , moderate assistance for toileting and total assistance for bed/chair/culture transfers. He requires total assistance for walking with a rolling walker only 40 feet. He is limited by a range of motion deficit to both shoulders due to previous trauma. In addition he is limited by pain. The following medical conditions are noted and require active monitoring and/or management: 1. s/p repair left hip fracture: Patient was extremely active prior to this fall and injury. He is at risk for skin breakdown, uncontrolled pain and poor wound healing. He does have a hemiarthroplasty in place and is at risk for the ulcer noted on the left lower extremity to seat this area. At the present time the ulcer looks clean. 2. Chronic ulcer left bunion area, at risk for infection although appears clean at present 3. Acute blood loss anemia: He is at risk for further blood loss anemia in view of his fracture as well as reinstitution of Pradaxa. 4. Atrial fibrillation on Pradaxa: He is at risk for rapid ventricular response in view of increased energy demands with therapy. He is at risk for bleeding as described above. 5. Ischemic heart disease status post stent placement and diastolic heart failure, both apparently currently compensated. The following therapies will be needed: 1. Physical therapy: for transfers and ambulation and stairs. 2. Occupational therapy: for ADL's and transfers. 3. Medical management: for the above conditions. 4. 24 hour Rehabilitation Nursing to monitor and address the following: Monitor cardiac status, blood pressure, heart rate, atrial fibrillation as well as pain management. He requires monitoring and treatment of the left foot ulcer to prevent infection. [facility] Patient Stated Medical History Cataracts Yes Glaucoma Yes Cardiac Arrhythmia Yes Congestive Heart Failure Yes Coronary Artery Disease Yes: PPM and Stents Heart Murmur Yes Hx Benign Prostatic Yes Hyperplasia Osteoarthritis Yes: MILD Other Infectious Yes: NON HEALING FOOT WOUND Clinic Medical History (Last Reviewed 06/14/17 @ 04:06 by Faraz Quezada MD) HTN (hypertension) (Acute Medical) Idiopathic peripheral neuropathy (Acute Medical) Prostate cancer (Acute Medical) Tremor (Acute Medical) Congestive heart failure (Chronic Medical) Medical History Updates: 1. Chronic ulcer left medial first MPJ joint on foot. 2. Diastolic heart failure, grade 2. 3. Atrial fibrillation, on Pradaxa for 4 years. 5. Dyslipidemia. 6. Hypothyroidism. 7. GERD. 8. Prostate cancer without known metastases Surgical History: 1. Prostate Surgery: Total prostatectomy about 20 years ago. No radiation therapy nor hormonal therapy. 2. Pacemaker: Per patient this is his second pacemaker and it is a single-chamber device according to the patient. 3. Left Shoulder Surgery: Prosthetic implant in place. 4. Bilateral cataract procedure. 5. T and A. 6. Cardiac stent placement 2. 7. Left hip hemiarthroplasty Family History: Family History (Last Reviewed 04/16/17 @ 09:47 by Tamara Eldridge MA) Mother Aneurysm Father Diabetes Sister Diabetes Family History Updates: Mother of cerebral aneurysm. She lived about a year after its rupture. Father from cancer of uncertain site age 97. A brother is with heart disease age 75. Two sisters are living; one aged 93 and one aged 94. 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 His about 3 years ago. Patient is very active and does dancing and horseback riding. 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 Review of Systems - Constitutional Constitutional: Absent: anorexia, chills, fatigue, fever(s), headache(s), lethargy, malaise, night sweats, weakness, weight gain, [facility] loss [facility] Eyes: Absent: blurry vision, change in vision, diplopia Mouth/Throat: Absent: changes in swallowing, painful swallowing, change in taste , bleeding gums, change in voice - Cardiovascular Cardiovascular: Absent: chest pain, palpitations, syncope, dyspnea on exertion, orthopnea, edema, cyanosis, heart murmur Rhythm: Present: abnormal rhythm Vascular: Absent: intermittent claudication, pedal edema, unilateral swelling - Respiratory Respiratory: Absent: cough, dyspnea, hemoptysis, dyspnea on exertion, wheezing, pain on inspiration, chest congestion, excessive phlegm production - Gastrointestinal Gastrointestinal: Absent: abdominal pain, change in bowel habits, constipation, diarrhea, dyspepsia, dysphagia, early satiety, hematochezia, melena, nausea, vomiting - Musculoskeletal Musculoskeletal: Present: myalgias. Absent: abnormal gait, arthralgias, back pain, joint swelling, limited range of motion, muscle weakness - Integumentary/Breasts Integumentary: Absent: alopecia, erythema, lesions, pruritus, rash, jaundice - Neurological Neurological: Absent: abnormal gait, abnormal movements, abnormal speech, confusion, convulsions, dizziness, focal weakness, frequent falls, headache(s), loss of vision, memory loss, numbness, paresthesias, tremor(s) - Psychiatric Psychiatric: Absent: abnormal sleep pattern, anxiety, depression - Endocrine Endocrine: Absent: cold intolerance, flushing, heat intolerance, palpitations - Hematologic/Lymphatic Hematologic/Lymphatic: Absent: easy bleeding, easy bruising, lymphadenopathy - Allergic/Immunologic Allergic/Immunologic: Absent: urticaria Medications Home Medications Medication Instructions Recorded Confirmed Type Simvastatin [Zocor] 20 mg PO HS #0 12/28/08 06/16/17 History Glucosamine/D3/Boswellia Lulu 1 each PO DAILY #0 06/22/12 06/16/17 History [Osteo Bi-Flex Caplet] Levothyroxine Sodium 25 mcg PO DAILY #0 08/22/14 06/16/17 History Cholecalciferol (Vitamin D3) 2,000 unit PO DAILY 06/08/17 06/16/17 History [Vitamin D3] Dabigatran [Pradaxa] 150 mg PO BID 06/08/17 06/16/17 History Furosemide [Lasix] 40 mg PO DAILY 06/08/17 06/16/17 History Lisinopril [Zestril] 5 mg PO DAILY 06/08/17 06/16/17 History Multivit-Min/FA/Lycopen/Lutein 1 each PO DAILY 06/08/17 06/16/17 History [Centrum Silver Tablet] Primidone [Mysoline] 100 mg PO TID 06/08/17 06/16/17 History Vitamin B Complex Vit C No.4 1 tab PO DAILY 06/08/17 06/16/17 History [Super B Complex] Allergies Allergy/AdvReac Type Severity Reaction Status Date / Time No Known Allergies Allergy Verified 06/14/17 00:53 Results IRU - Labs Labs: I reviewed his inpatient records. Exam Vital Signs: Temperature 98.2 F 06/16/17 13:24 Pulse Rate 97 06/16/17 13:24 Respiratory Rate 20 06/16/17 13:24 Blood Pressure 137/71 06/16/17 13:24 Pulse Oximetry 97 06/16/17 13:24 Height/Weight/BMI: Height 1.83 m Weight 94.9 kg Body Mass Index 28.3 - Constitutional Present: mild distress (secondary to right hip pain), well nourished, well developed, average body habitus, cooperative - Routine HEENT Exam Head: Present: normocephalic, atraumatic. Absent: cushingoid faces, abrasion, laceration, hematoma Eye: Present: EOMI, PERRL. Absent: conjunctival icterus, scleral injection, periorbital swelling, nystagmus ENT: Present: mucous membranes moist, oropharynx clear. Absent: dentition normal (does have an upper partial plate) - Routine Neck Exam Present: supple, full ROM, trachea midline. Absent: lymphadenopathy, thyromegaly, tenderness, swelling - Routine Chest/Breast/Axilla Exam Chest wall: Absent: tenderness, mass Axillae: Absent: lymphadenopathy, mass - Routine Respiratory Exam Present: CTA bilaterally. Absent: accessory muscle use, decreased breath sounds , prolonged expiratory phase, rales, respiratory distress, rhonchi, stridor, wheezes, crackles, distant breath sounds - Routine Cardiovascular Exam Present: S1, S2, murmur (left sternal border and possibly second right interspace.), irregularly irregular. Absent: gallop, S3, S4, click, irregular rhythm - Routine Abdominal Exam Present: soft, normoactive bowel sounds, non distended, non tender. Absent: rebound, guarding, firm, rigid, organomegaly, mass, hernia, wound - Routine Extremities Exam Present: edema (trace edema both lower extremities.), non tender, pulses intact , normal capillary refill. Absent: cyanosis, clubbing Comments: There is a small punctate chronic wound noted medial aspect left first MP joint on his foot. This is clean. There is minimal surrounding callus. - Routine Back/Spine/Pelvis Exam Back/Spine: Present: full ROM. Absent: scoliosis, kyphosis - Routine Skin Exam Present: intact, dry, warm, wounds (please see above discussion regarding his left foot wound.). Absent: cyanosis, erythema, pallor, mottling, petechiae, urticaria, lesions, jaundice - Routine Neurological Exam Present: alert, oriented X3, CN II-XII intact, moving all extremities, normal speech - Routine Psychiatric Exam Present: normal affect, normal thought process, cooperative, good insight, good judgment. Absent: depressed, anxious Sepsis Assessment - Evaluation Severe Sepsis: none seen IRU A/P (1) Status post-operative repair of closed fracture of left hip Current visit: Yes Status: Acute A multidisciplinary approach with PT and OT with 24 rehabilitation nursing monitoring of his pain will be undertaken. (2) Atrial fibrillation Qualifiers: Atrial fibrillation type: permanent Qualified Code(s): I48.2 - Chronic atrial fibrillation Current visit: Yes Status: Chronic Patient has evidence of permanent atrial fibrillation. He is on Pradaxa for the least the last 4 years. He is at risk for further bleeding in view of reinstitution of Pradaxa in the postoperative timeframe. He is at risk for uncontrolled ventricular rate in view of his increased energy demands with therapy. He also has history of ischemic heart disease and is status post stent placement 2. (3) Acute blood loss anemia Current visit: Yes Status: Acute Patient has history of acute blood loss anemia from his recent fracture. He is at risk for further bleeding in view of reinstitution of Pradaxa. (4) Foot ulcer, left Qualifiers: Non-pressure ulcer stage: limited to breakdown of skin Qualified Code(s): L97.521 - Non-pressure chronic ulcer of other part of left foot limited to breakdown of skin Current visit: No Status: Chronic Has at least a 2 month history of a foot ulcer involving the medial aspect of his left first MP joint. This appears to be consistent with a pressure ulcer limited to skin breakdown at present. Apparently it is improving based on communication with wound care. Currently it is noninfected. However there is concern about portal of entry if there is evidence of infection in view of the new bill-arthroplasty. In view of this, meticulous efforts at cleanliness of the wound will be undertaken. (5) Slow transit constipation Current visit: Yes Status: Acute Patient will be placed on a bowel management program. DVT Prophylaxis: SCD's Resuscitation Status: Full Code - Course Hospital Course: Jakob Jessica MD: - Interventions to Obtain Goals PT Treatment Plan: Balance/Proprioception, Functional Activities, Gait Training , Patient/Family Education, Therapeutic Exercise OT Treatment Plan: ADL (Basic Care), Balance Training, IADL, Perception Training , Ther. Exercise for ADL Goals Progress/Modifications: Because this patient's multiple medical problems including acute blood loss anemia, atrial fibrillation with reinstitution of Pradaxa therapy and risk of bleeding as well as his underlying coronary artery disease and diastolic heart failure, the patient requires a multidisciplinary approach to his recovery. Physical therapy and occupational therapy will be involved along with 24 hour rehabilitation nursing and medical supervision.
--- NOTE | 2017-06-16 14:41 | IRU 24Hr Post Admit Eval ---
24 Hr Post Admission Physical - Relevant Changes Relevant Changes: No Reviewed: I have reviewed the patient's information and concur with the finding and results of the pre-admission screen. Certification: I certify the patient for rehabilitation. - Patient Condition (1) Status post-operative repair of closed fracture of left hip Status: Acute Code(s): Z98.890 - Other specified postprocedural states; Z87.81 - Personal history of (healed) traumatic fracture Classification: Present on IRF Admission, IRF Tx That Should Address Diagnosis, Diagnosis Requiring Medical Follow Up (2) Atrial fibrillation Status: Chronic Qualifiers: Atrial fibrillation type: permanent Qualified Code(s): I48.2 - Chronic atrial fibrillation Code(s): I48.91 - Unspecified atrial fibrillation Classification: Present on IRF Admission, IRF Tx That Should Address Diagnosis, Diagnosis Requiring Medical Follow Up (3) Acute blood loss anemia Status: Acute Code(s): D62 - Acute posthemorrhagic anemia Classification: Present on IRF Admission, IRF Tx That Should Address Diagnosis, Diagnosis Requiring Medical Follow Up (4) Foot ulcer, left Status: Chronic Qualifiers: Non-pressure ulcer stage: limited to breakdown of skin Qualified Code(s): L97.521 - Non-pressure chronic ulcer of other part of left foot limited to breakdown of skin Code(s): L97.529 - Non-pressure chronic ulcer of other part of left foot with unspecified severity Classification: Present on IRF Admission, IRF Tx That Should Address Diagnosis, Diagnosis Requiring Medical Follow Up (5) Slow transit constipation Status: Acute Code(s): K59.01 - Slow transit constipation Classification: Present on IRF Admission, IRF Tx That Should Address Diagnosis - Prior Functional Status Lives With: Alone Residence Type: Apartment/Private Home Assitive Devices: None Prior Functional Status: Indep. at home or school, Indep. w/ IADL - Current Functional Status Current Level of Function: At the present time he is modified independent for eating but requires supervision for upper body dressing, maximum assistance for lower body dressing , moderate assistance for toileting and total assistance for bed/chair/culture transfers. He requires total assistance for walking with a rolling walker only 40 feet. He is limited by a range of motion deficit to both shoulders due to previous trauma. In addition he is limited by pain. Failed Alternative Therapy: Arrived from Acute Care Patient Requirements: The patient requires oversight by rehabilitation physician to manage their rehabilitation treatment plan and multidisciplinary approach to care that can only be provided in an IRF and requires a multidisciplinary approach to care, provided by professional PTs, OTs, STs, dieticians, RTs, rehabilitation nurses and is not available in lesser levels of care. Limitations Req: Mobility Impairment, ADL Impairment Physical Therapy Minutes: 90 Occupational Therapy Minutes: 90 Therapy: The patient is to receive therapy at least 5 days a week. - Complications/Comorbidities Impact on Functional Outcomes: This patient's acute blood loss anemia and wound involving the left lower extremity may negatively impact his functional outcome. In addition he does carry diagnoses of diastolic heart failure and atrial fibrillation. Barriers to Discharge: Weakness, Endurance, Pain Control - Plan to Avoid Complications Plan to Avoid Complications: The patient cannot receive this care in a lesser intensive setting such as Snf or Outpatient Therapy due to the patient requiring the following : This patient has evidence of acute blood loss anemia as well as a slowly healing wound involving the left foot. He requires 24 rehabilitation nursing monitoring of these conditions as well as his atrial fibrillation, reinstitution of Pradaxa to monitor for evidence of further blood loss and monitoring of his cardiac status in view of previous stent placements and diastolic heart failure. He requires a multidisciplinary approach with physical therapy and occupational therapy with medical supervision.
[2017-06-16] MEDS: PRIMIDONE 50 MG TABLET PO SCH ×2 (15:24→21:26)
[2017-06-16] MEDS: TRAMADOL 50 MG TABLET PO PRN ×2 (15:38→21:26)
[2017-06-16] MEDS ORDERED: FALL RISK - PHARMACY CONSULT MC ONE (15:43)
--- NOTE | 2017-06-16 15:47 | Wound Care Progress Note ---
Wound Center Progress Note: Pt seen for wound consultation r/t ulcer on L medial foot. Pt resting in bed, no complaints of pain. Pt is being followed at the [facility] by Dr. Fernandez, last appointment 06/11/17, for this arterial ulcer to L medial foot. Pt states he had an operation to his L hip on Friday; at that time the nursing staff changed his foot dressing using Aquacel Ag and mepilex. Pt reports the wound has not been draining. L medial foot: arterial ulcer, wound bed is pink, non-granulating, no active drainage. Periwound: blanchable. [place] plan: Aquacel Ag, mepilex, change q 3 days.
--- NOTE | 2017-06-16 15:50 | Wound Care Progress Note ---
Wound Management - Patient Status Premedicated Prior to Dressing Change: No - Wound Left Medial Foot Wound Type: Arterial ulcer Wound Present on Admission?: Yes Length: 0.4 Width: 0.3 Depth: 0.2 Wound Bed Appearance: Bodega Jelly Wound Appearance: Well Defined Tunneling: No Undermining: No Drainage Amount: None Drainage Odor: No Odor Dressing Status: Changed Primary Dressing: Silver Dressing Secondary Dressing: Foam Dressing Dressing Change Date: 06/16/17 Dressing Change Time: 13:15 Dressing Change Patient Tolerance: Tolerated Well (Flash Valet Ag, Mepilex, change q 3 days.)
[2017-06-16] MEDS: DOCUSATE SODIUM 100 MG CAPSULE PO SCH (21:27)
[2017-06-16] MEDS: SIMVASTATIN 20 MG TABLET PO SCH (21:27)
[2017-06-16] MEDS: SENNOSIDES 8.6 MG TABLET PO SCH (21:28)
[2017-06-17] MEDS: LEVOTHYROXINE 25 MCG TABLET PO SCH (05:41)
[2017-06-17] MEDS: TRAMADOL 50 MG TABLET PO PRN ×2 (05:41→14:19)
[2017-06-17] MEDS: LISINOPRIL 5 MG TABLET PO SCH (08:25)
[2017-06-17] MEDS: FUROSEMIDE 40 MG TABLET PO SCH (08:26)
[2017-06-17] MEDS: DOCUSATE SODIUM 100 MG CAPSULE PO SCH (08:26)
[2017-06-17] MEDS: PRIMIDONE 50 MG TABLET PO SCH ×3 (08:26→21:07)
[2017-06-17] MEDS: POLYETHYL GLYCOL 3350 17gm PACKET PO SCH (08:27)
--- NOTE | 2017-06-17 09:14 | Consult Note ---
Consult Information - Data of Consult Consult date: 06/17/17 Requesting Physician: Jakob Jessica MD Primary Care Provider: Jesika Choudhury MD - Consult Narrative Reason for consult: Medical management History of present illness: Patient is an 86-year-old male who was previously on the medical unit following a fall causing a hip fracture. He had originally fallen on 06/07/17 and presented to the emergency room on 06/08/17 at which time radiograph of the hip was negative and patient was sent home. He fell again on 06/13/17. After standing up from the toilet, he took a few steps with his walker and suddenly had severe pain in the left hip causing him to fall back onto the toilet. At this point he was found to have a mildly displaced left subcapital femoral neck fracture. Patient was taken to surgery on 06/15/[address] Sood and had a left bill-arthroplasty performed. Patient has atrial fibrillation and a permanent pacemaker. He is on chronic anticoagulation. His Pradaxa was resumed post surgery. He had a drop in hemoglobin from 10.6-9.3 following surgery, but he is not having any chest pain, shortness of breath or lightheadedness. Overall he reports he is doing well. He has pain especially with moving from a standing to sitting position. No pain at rest. States when he is up and walking with his walker the pain is very tolerable. He had a good bowel movement overnight. Nurses report that there was some "reddish brown/blood coloring present." Patient does struggle with constipation and bowel was very large informed per nurses. Past Medical History Medical History: Medical History (Last Reviewed 06/14/17 @ 04:06 by Faraz Quezada MD) HTN (hypertension) Idiopathic peripheral neuropathy Prostate cancer Tremor Congestive heart failure Medical History Updates: hypertension. action tremor. history of prostate cancer. hypothyroidism. GERD. obstructive sleep apnea. hyperlipidemia. coronary artery disease status post stent to the right coronary artery in 2011, stent to the LAD in 2010- heart catheterization in 2014 showing patent stents. anemia. atrial fibrillation. chronic oral anticoagulation. valvular heart disease. moderate mitral insufficiency,. mild aortic stenosis with aortic valve area estimated at 1.5 cm in 2017,. moderate tricuspid insufficiency. mild pulmonary insufficiency. moderate pulmonary hypertension at 48 mmHg. diastolic dysfunction. idiopathic peripheral neuropathy. Degenerative joint disease. Arthritis. 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 Prostate Surgery: Total prostatectomy about 20 years ago. No radiation therapy nor hormonal therapy. 2. Pacemaker: Per patient this is his second pacemaker and it is a single-chamber device according to the patient. 3. Left Shoulder Surgery: Prosthetic implant in place. 4. Bilateral cataract procedure. 5. T and A. 6. Cardiac stent placement 2. 7. Left hip hemiarthroplasty Family History: Family History Mother of cerebral aneurysm. Father from cancer of uncertain site age 97. Brother is with heart disease age 75. Two sisters are living; one aged 93 and one aged 94. 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 He is . At baseline he is very active. His son is a physical therapist. Review of Systems All systems PM: 10-point ROS was reviewed, no additional remarkable complaints except (pain in the hip with movement) Medications Home Medications Medication Instructions Recorded Confirmed Type Simvastatin [Zocor] 20 mg PO HS #0 12/28/08 06/16/17 History Glucosamine/D3/Boswellia Lulu 1 each PO DAILY #0 06/22/12 06/16/17 History [Osteo Bi-Flex Caplet] Levothyroxine Sodium 25 mcg PO DAILY #0 08/22/14 06/16/17 History Cholecalciferol (Vitamin D3) 2,000 unit PO DAILY 06/08/17 06/16/17 History [Vitamin D3] Dabigatran [Pradaxa] 150 mg PO BID 06/08/17 06/16/17 History Furosemide [Lasix] 40 mg PO DAILY 06/08/17 06/16/17 History Lisinopril [Zestril] 5 mg PO DAILY 06/08/17 06/16/17 History Multivit-Min/FA/Lycopen/Lutein 1 each PO DAILY 06/08/17 06/16/17 History [Centrum Silver Tablet] Primidone [Mysoline] 100 mg PO TID 06/08/17 06/16/17 History Vitamin B Complex Vit C No.4 1 tab PO DAILY 06/08/17 06/16/17 History [Super B Complex] Allergies Allergy/AdvReac Type Severity Reaction Status Date / Time No Known Allergies Allergy Verified 06/17/17 07:18 Exam Vital Signs: Temperature 98.2 F 06/17/17 08:00 Pulse Rate 60 06/17/17 08:00 Respiratory Rate 18 06/17/17 08:00 Blood Pressure 106/64 06/17/17 08:00 Pulse Oximetry 90 06/17/17 08:00 Height/Weight/BMI: Height 1.83 m Weight 94.9 kg Body Mass Index 28.3 - Constitutional Present: no acute distress, well nourished, well developed - Routine HEENT Exam Head: Present: normocephalic, atraumatic Eye: Present: EOMI, PERRL - Routine Neck Exam Present: supple. Absent: lymphadenopathy, thyromegaly - Routine Respiratory Exam Present: CTA bilaterally. Absent: wheezes - Routine Cardiovascular Exam Present: murmur, irregularly irregular - Routine Abdominal Exam Present: soft, normoactive bowel sounds. Absent: tenderness, distended - Routine Extremities Exam Present: edema (trace bilateral lower extremities), normal capillary refill - Routine Skin Exam Present: dry, warm - Routine Neurological Exam Present: alert, oriented X3, CN II-XII intact - Routine Psychiatric Exam Present: normal affect, cooperative Results - Labs CBC & Chem 7: 06/17/17 04:26 06/17/17 04:26 Assessment and Plan Assessment and Plan: Assessment S/P left displaced femoral neck fracture with left hip hemiarthroplasty performed 06/15/17 (Dr. Sood) Acute blood loss anemia Hypertension Action tremor History of prostate cancer Hypothyroidism GERD Obstructive sleep apnea - declines CPAP Hyperlipidemia Coronary artery disease status post stent to the right coronary artery in 2011, stent to the LAD in 2010- heart catheterization in 2014 showing patent stents Atrial fibrillation Chronic oral anticoagulation Valvular heart disease Moderate mitral insufficiency, Mild aortic stenosis with aortic valve area estimated at 1.5 cm in 2017, Moderate tricuspid insufficiency Mild pulmonary insufficiency Moderate pulmonary hypertension at 48 mmHg Diastolic dysfunction Idiopathic peripheral neuropathy Degenerative joint disease Arthritis 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 Jessica. Patient is doing very well. Will follow his hemoglobin given the drop from 10.6 on admission to 9.3 today. Suspect his "reddish" stool was a result of his large stool related to his chronic constipation as well as his chronic anticoagulation. Again, will follow blood counts. Following with wound care for arterial ulcer on the foot. Goal is to return home independently. Care to return to Dr. Choudhury on dismissal. Hospitalist service will follow patient throughout his stay. Thank you for the consult. - Physician Narrative Physician: Yazan Garcia MD Narrative: Date: 06/17/17 Time: 1931 Have independently interviewed and examined pt. Chart reviewed. Case discussed with my PA. Above care plan developed with my supervision; agree with above. Admitted to IRU for restorative therapy following hip fracture and surgical repair. Tired this evening-worked very hard with therapy and did much activities. Tolerated well. Pain varies-more with positional changes, but overall controlled. No ab pain or nausea. Had stool this am. Breathing well. Lungs: clear bilaterally CV: regular sounding AB: soft nt/nd MSE: awake alert appropriate Plan: Agree with admission of patient to IRU to maximize functional status. Encourage therapy for restorative gains--very encouraging he was able to do so well today. Continue with medications as outlined from acute. Monitor hemoglobin due to anemia. Encourage pulmonary toilet. F/U with Dr Choudhury 1 week post discharge from IRU. Medically stable for IRU floor activities. Will continue to follow during his hospital stay. Hospital Course Summary Disclaimer: The visit summary below is not to be considered part of the above Progress Note.
--- NOTE | 2017-06-17 11:18 | IRU Progress Note ---
- Subjective/Serverity of Illness Date: 06/17/17 Cornelio is settling into the rehabilitation routine nicely. He slept "off and on". He reports that his pain does come on when he tries to ambulate although overall it is well controlled he states. He did have a bowel movement. Review of his lab indicates hemoglobin slightly down further at 9.3 from 9.5. No evidence of overt bleeding at this time. He does have evidence of acute blood loss anemia likely related to the initial fracture. With regard to his diastolic heart failure he denies any shortness of breath. He does have some reduced exercise tolerance but overall tolerates things reasonably well. Exam Vital Signs: Temperature 98.2 F 06/17/17 08:00 Pulse Rate 60 06/17/17 08:00 Respiratory Rate 18 06/17/17 08:00 Blood Pressure 106/64 06/17/17 08:00 Pulse Oximetry 90 06/17/17 08:00 Height/Weight/BMI: Height 1.83 m Weight 94.9 kg Body Mass Index 28.3 - Constitutional Present: mild distress, well nourished, well developed, average body habitus, cooperative - Routine HEENT Exam Head: Present: normocephalic Eye: Present: EOMI ENT: Present: mucous membranes moist, oropharynx clear - Routine Neck Exam Present: supple - Routine Respiratory Exam Present: CTA bilaterally. Absent: wheezes - Routine Cardiovascular Exam Present: S1, S2, murmur, irregularly irregular - Routine Abdominal Exam Present: soft, normoactive bowel sounds, non distended. Absent: tenderness - Routine Extremities Exam Present: edema (trace on the left), normal capillary refill - Routine Skin Exam Present: dry, warm - Routine Neurological Exam Present: alert, oriented X3, CN II-XII intact - Routine Psychiatric Exam Present: normal affect, normal thought process, cooperative, good insight, good judgment Results IRU - Labs Labs: I reviewed laboratory findings indicating hemoglobin slightly down to 9.3. Other labs are stable. IRU A/P (1) Status post-operative repair of closed fracture of left hip Current visit: Yes Status: Acute Patient reports his pain management is adequate. (2) Atrial fibrillation Qualifiers: Atrial fibrillation type: permanent Qualified Code(s): I48.2 - Chronic atrial fibrillation Current visit: Yes Status: Chronic Continues in atrial fibrillation clinically but asymptomatic. He does have a permanent pacemaker in place which apparently is a single-chamber device. Tolerating Pradaxa adequately. (3) Acute blood loss anemia Current visit: Yes Status: Acute Hemoglobin trending downward at 9.3. Continue to monitor. (4) Foot ulcer, left Qualifiers: Non-pressure ulcer stage: limited to breakdown of skin Qualified Code(s): L97.521 - Non-pressure chronic ulcer of other part of left foot limited to breakdown of skin Current visit: No Status: Chronic (5) Slow transit constipation Current visit: Yes Status: Acute DVT Prophylaxis: SCD's Resuscitation Status: Full Code - Course Hospital Course: Jakob Jessica MD: 06/17/17 11:19 Hemoglobin down to 9.3. Repeat hemoglobin tomorrow. Pain management adequate. Tolerating Pradaxa adequately. - Interventions to Obtain Goals PT Treatment Plan: Balance/Proprioception, Functional Activities, Gait Training , Patient/Family Education, Therapeutic Exercise OT Treatment Plan: ADL (Basic Care), Balance Training, IADL, Pt./Family Education, Ther. Exercise for ADL Goals Progress/Modifications: He is adjusting to rehabilitation adequately. Pain management appears to be appropriate. We will reassess his hemoglobin in the morning. Patient states that he has had a bowel movement. He is sleeping reasonably well "off and on". Please note that the patient's individual plan of care was developed and documented today, requiring review of therapy notes, medical conditions and anticipated functional recovery. This required additional medical decision making with regard to interaction of the patient's medical issues with the anticipated functional recovery. Please see separate document
--- NOTE | 2017-06-17 11:22 | IRU Plan of Care ---
[facility] Overall Plan of Care - Date Date: 06/17/17 - Patient Impairments (1) Status post-operative repair of closed fracture of left hip Code(s): Z98.890 - Other specified postprocedural states; Z87.81 - Personal history of (healed) traumatic fracture Status: Acute Classification: Present on IRF Admission, IRF Tx That Should Address Diagnosis, Diagnosis Requiring Medical Follow Up (2) Acute blood loss anemia Code(s): D62 - Acute posthemorrhagic anemia Status: Acute Classification: Present on IRF Admission, IRF Tx That Should Address Diagnosis, Diagnosis Requiring Medical Follow Up (3) Slow transit constipation Code(s): K59.01 - Slow transit constipation Status: Acute Classification: Present on IRF Admission, IRF Tx That Should Address Diagnosis (4) Atrial fibrillation Qualifiers: Atrial fibrillation type: permanent Qualified Code(s): I48.2 - Chronic atrial fibrillation Code(s): I48.91 - Unspecified atrial fibrillation Status: Chronic Classification: Present on IRF Admission, IRF Tx That Should Address Diagnosis, Diagnosis Requiring Medical Follow Up (5) Foot ulcer, left Qualifiers: Non-pressure ulcer stage: limited to breakdown of skin Qualified Code(s): L97.521 - Non-pressure chronic ulcer of other part of left foot limited to breakdown of skin Code(s): L97.529 - Non-pressure chronic ulcer of other part of left foot with unspecified severity Status: Chronic Classification: Present on IRF Admission, IRF Tx That Should Address Diagnosis, Diagnosis Requiring Medical Follow Up - Relevant Changes Relevant Changes: No Reviewed: I have reviewed the patient's information and concur with the finding and results of the pre-admission screen. Certification: I certify the patient for rehabilitation. - Medical Prognosis Medical Prognosis: Good Vital Signs: Last Vital Signs Temp 98.2 F 06/17/17 08:00 Pulse 60 06/17/17 08:00 Resp 18 06/17/17 08:00 BP 106/64 06/17/17 08:00 Pulse Ox 90 06/17/17 08:00 - Anticipated Interventions Anticipated Interventions: The patient requires inpatient IRF care for PT and OT for residuals remaining from hip fracture and repair resulting in muscular weakness and strength deficits. ROM Deficit: Left Lower Extremity Strength Deficits: Left Lower Extremity - Current Functional Status Failed Alternative Therapy: Arrived from Acute Care Patient Requires: The patient requires oversight by rehabilitation physician to manage their rehabilitation treatment plan and multidisciplinary approach to care that can only be provided in an IRF and requires a multidisciplinary approach to care, provided by professional PTs, OTs, STs, rehabilitation nurses, and may require STs, dieticians, and RTS. This is not available in lesser levels of care. Physical Therapy Minutes: 90 Occupational Therapy Minutes: 90 Therapy: The patient is to receive therapy at least 5 days a week. - Anticipated LOS/Outcomes Anticipated Functional Outcome: It is anticipated Cornelio will be able to return to his home at modified independent level of functioning, using a walker for ambulation. It is further anticipated he will be independent with his ADLs. He may still require assistance with IADLs. It is anticipated he will be able to live independently. It is also anticipated that his hemoglobin will be stable at the time of dismissal and his diastolic heart failure will be compensated. Anticipated Length of Stay (days): 10 Anticipated DC Destination: Home, Self Care, Home Health Service Home Safety Plan: The patient will be provided with the development of a Home Safety Plan for return to a home or home-like environment and and to ensure safety post discharge. - Plan to Avoid Complications Barriers to Attaining Goals: Weakness, Endurance, Pain Control Plan to Avoid Complications: The patient cannot receive this care in a lesser intensive setting such as Senior Living or Outpatient Therapy due to the patient requiring the following : Mr. Clinton dias requires close 24 hour rehabilitation nursing monitoring of his vital signs in view of his atrial fibrillation. He requires close monitoring of his wound and monitoring of evidence of continued acute blood loss anemia. He requires adequate assessment of his pain to provide adequate pain management. He requires a multidisciplinary approach with PT and OT with medical supervision in view of his history of diastolic heart failure and acute blood loss anemia. Finally he requires meticulous nursing monitoring and care of his left foot ulcer to prevent infection and subsequent seeding of the prosthesis.
[2017-06-17] MEDS ORDERED: BISACODYL 10 MG SUPPOSITORY RECTALLY SCH (20:00)
[2017-06-17] MEDS: SIMVASTATIN 20 MG TABLET PO SCH (21:07)
[2017-06-17] MEDS: SENNOSIDES 8.6 MG TABLET PO SCH (21:07)
[2017-06-18] MEDS: DOCUSATE SODIUM 100 MG CAPSULE PO SCH ×3 (00:34→20:10)
[2017-06-18] MEDS: LEVOTHYROXINE 25 MCG TABLET PO SCH ×2 (05:28→06:32)
[2017-06-18] MEDS: PRIMIDONE 50 MG TABLET PO SCH ×3 (08:28→20:10)
[2017-06-18] MEDS: FUROSEMIDE 40 MG TABLET PO SCH (08:29)
[2017-06-18] MEDS: LISINOPRIL 5 MG TABLET PO SCH (08:29)
[2017-06-18] MEDS: TRAMADOL 50 MG TABLET PO PRN (08:29)
[2017-06-18] MEDS: POLYETHYL GLYCOL 3350 17gm PACKET PO SCH (08:30)
--- NOTE | 2017-06-18 10:15 | IRU Progress Note ---
- Subjective/Serverity of Illness Date: 06/18/17 Cornelio reports that his pain is reasonably well controlled. He does have discomfort when he is up and about as anticipated. He did have several bowel movements in the last 24 hours. Stool softener will be held. His appetite is good. With regard to his diastolic heart failure, he denies any dyspnea. There is no significant edema and he denies any chest pains. I reviewed therapy notes and he appears to be improving. Hemoglobin improved further at 9.9 g percent. Exam Vital Signs: Temperature 97.8 F 06/18/17 09:00 Pulse Rate 86 06/18/17 09:00 Respiratory Rate 18 06/18/17 09:00 Blood Pressure 125/66 06/18/17 09:00 Pulse Oximetry 99 06/18/17 09:00 Height/Weight/BMI: Height 1.83 m Weight 95.1 kg Body Mass Index 28.3 - Constitutional Present: mild distress (hip pain with ambulation), well nourished, well developed - Routine HEENT Exam Eye: Present: EOMI ENT: Present: mucous membranes moist, oropharynx clear - Routine Respiratory Exam Present: CTA bilaterally. Absent: wheezes, crackles - Routine Cardiovascular Exam Present: RRR, S1, S2. Absent: murmur - Routine Abdominal Exam Present: soft, normoactive bowel sounds, non distended. Absent: tenderness - Routine Extremities Exam Present: normal capillary refill - Routine Skin Exam Present: dry, warm - Routine Neurological Exam Present: alert, oriented X3, CN II-XII intact - Routine Psychiatric Exam Present: normal affect Results IRU - Labs Labs: I reviewed blood work IRU A/P (1) Status post-operative repair of closed fracture of left hip Current visit: Yes Status: Acute Patient appears to be progressing adequately with regard to his left hip fracture. Pain present with ambulation as anticipated. (2) Acute blood loss anemia Current visit: Yes Status: Acute Repeat hemoglobin shows improvement at 9.9 g percent. No evidence of ongoing bleeding. Acute blood loss anemia likely stabilized at present. (3) Slow transit constipation Current visit: Yes Status: Resolved Reports that he is having adequate bowel movements at present. (4) Atrial fibrillation Qualifiers: Atrial fibrillation type: permanent Qualified Code(s): I48.2 - Chronic atrial fibrillation Current visit: Yes Status: Chronic Tolerating resumption of Pradaxa without difficulty. (5) Foot ulcer, left Qualifiers: Non-pressure ulcer stage: limited to breakdown of skin Qualified Code(s): L97.521 - Non-pressure chronic ulcer of other part of left foot limited to breakdown of skin Current visit: No Status: Chronic DVT Prophylaxis: SCD's Resuscitation Status: Full Code - Course Hospital Course: Jakob Jessica MD: 06/17/17 11:19 Hemoglobin down to 9.3. Repeat hemoglobin tomorrow. Pain management adequate. Tolerating Pradaxa adequately. 06/18/17 10:15 Progressing with therapy. Hemoglobin improved to 9.9. - Interventions to Obtain Goals PT Treatment Plan: Balance/Proprioception, Functional Activities, Gait Training , Patient/Family Education, Therapeutic Exercise OT Treatment Plan: ADL (Basic Care), Balance Training, IADL, Pt./Family Education, Ther. Exercise for ADL
[2017-06-18] MEDS: ACETAMINOPHEN 325 MG TABLET PO PRN (11:41)
[2017-06-18] MEDS: SENNOSIDES 8.6 MG TABLET PO SCH (20:10)
[2017-06-18] MEDS: SIMVASTATIN 20 MG TABLET PO SCH (20:10)
[2017-06-19] MEDS: LEVOTHYROXINE 25 MCG TABLET PO SCH (05:35)
[2017-06-19] MEDS: POLYETHYL GLYCOL 3350 17gm PACKET PO SCH (08:29)
[2017-06-19] MEDS: PRIMIDONE 50 MG TABLET PO SCH ×3 (08:29→21:30)
[2017-06-19] MEDS: DOCUSATE SODIUM 100 MG CAPSULE PO SCH ×2 (08:29→21:30)
[2017-06-19] MEDS: FUROSEMIDE 40 MG TABLET PO SCH (08:30)
[2017-06-19] MEDS: LISINOPRIL 5 MG TABLET PO SCH (08:30)
[2017-06-19] MEDS: TRAMADOL 50 MG TABLET PO PRN (10:59)
--- NOTE | 2017-06-19 11:29 | Progress Note ---
- Date 06/19/17 Subjective: Cornelio was seen after working with morning therapy. He states he is doing fairly well, but his left hip is aching. He has had multiple stools and stool softeners were reduced. He denies feeling short of breath or dizzy. He denies any chest pain or palpitations. He has been eating well and denies any nausea or vomiting. He states he has a little bit of leg swelling in his left leg. Objective Vital signs: Temperature 98.1 F 06/19/17 08:00 Pulse Rate 72 06/19/17 08:00 Respiratory Rate 16 06/19/17 08:00 Blood Pressure 151/72 H 06/19/17 08:00 Pulse Oximetry 93 06/19/17 08:00 Height/Weight/BMI: Height 1.83 m Weight 95.1 kg Body Mass Index 28.3 - Constitutional Present: no acute distress, well nourished, well developed - Routine HEENT Exam Head: Present: normocephalic ENT: Present: mucous membranes moist, oropharynx clear - Routine Respiratory Exam Present: CTA bilaterally - Routine Cardiovascular Exam Present: murmur, irregularly irregular - Routine Abdominal Exam Present: soft, normoactive bowel sounds, non distended, non tender - Routine Extremities Exam Present: edema (trace to left lower extremity) - Routine Musculoskeletal Exam Musculoskeletal: Present: moving extremities well - Routine Skin Exam Present: intact, dry, warm - Routine Neurological Exam Present: alert, oriented X3, CN II-XII intact, moving all extremities, vision grossly intact, hearing grossly intact, normal speech. Absent: sensory deficit , motor deficit, altered mental status, facial asymmetry - Routine Psychiatric Exam Present: normal affect, normal thought process, cooperative Results - Labs CBC & Chem 7: 06/18/17 05:21 06/17/17 04:26 Assessment and Plan Assessment and Plan: Assessment S/P left displaced femoral neck fracture with left hip hemiarthroplasty performed 06/15/17 (Dr. Sood) Acute blood loss anemia Hypertension Action tremor History of prostate cancer Hypothyroidism GERD Obstructive sleep apnea - declines CPAP Hyperlipidemia Coronary artery disease status post stent to the right coronary artery in 2011, stent to the LAD in 2010- heart catheterization in 2014 showing patent stents Atrial fibrillation Chronic oral anticoagulation Valvular heart disease Moderate mitral insufficiency, Mild aortic stenosis with aortic valve area estimated at 1.5 cm in 2016, Moderate tricuspid insufficiency Mild pulmonary insufficiency Moderate pulmonary hypertension at 48 mmHg Diastolic dysfunction Idiopathic peripheral neuropathy Degenerative joint disease Arthritis 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 He does not have any symptoms of anemia. He is hemodynamically stable. Constipation has resolved and now he is having frequent loose stools. Dr. Young has already adjusted dosing frequency. 4. Stool softeners. Repeat CBC and BMP on June 23. 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 Tom was independently interviewed and examined by me. Currently he is resting comfortably in bed having already had supper. His pain is controlled. He states this morning he didn't get a pain pill on time and really got behind eightball with that. He denies any other complaints to me at this time. PE: Gen: alert and oriented. NAD Skin: warm and dry HEENT: NC/AT PERRL, EOMI, Sclera, lids and conjunctiva wnl, MMM, OP clear Neck: supple. No JVD, Carotids 2+ without bruits. Lungs: clear, No rales, rhonchi, wheezes. CV: regular. 2/6 systolic murmur Abd: soft. NT/ND, +BS MS: Trace edema. The medial ball of the foot has a bandaid in place. Neuro: No focal deficit Psy: normal mood and affect Assessment: S/P left displaced femoral neck fracture with left hip hemiarthroplasty performed 06/15/17 (Dr. Sood) Acute blood loss anemia Hypertension Action tremor History of prostate cancer Hypothyroidism GERD Obstructive sleep apnea - declines CPAP Hyperlipidemia Coronary artery disease status post stent to the right coronary artery in 2011, stent to the LAD in 2010- heart catheterization in 2014 showing patent stents Atrial fibrillation Chronic oral anticoagulation Valvular heart disease Moderate mitral insufficiency, Mild aortic stenosis with aortic valve area estimated at 1.5 cm in 2017, Moderate tricuspid insufficiency Mild pulmonary insufficiency Moderate pulmonary hypertension at 48 mmHg Diastolic dysfunction Idiopathic peripheral neuropathy Degenerative joint disease Arthritis 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 He does not have any symptoms of anemia. He is hemodynamically stable. Constipation has resolved and now he is having frequent loose stools. Dr. Young has already adjusted dosing frequency of stool softeners. Repeat CBC and BMP on June 23. 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 The patient was discussed with the nurse practitioner in detail and I agree with the above assessment and plan. Hospital Course Summary Disclaimer: The visit summary below is not to be considered part of the above Progress Note. Hospital Course: 06/19/17 Hemoglobin improved from 9.3-9.9, and distal was negative for occult blood. He does not have any symptoms of anemia. He is hemodynamically stable. Constipation has resolved and now he is having frequent loose stools. Dr. Young has already adjusted dosing frequency. 4. Stool softeners. Repeat CBC and BMP on June 23. 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
[2017-06-19] MEDS: ACETAMINOPHEN 325 MG TABLET PO PRN ×2 (12:00→21:30)
[2017-06-19] MEDS: SENNOSIDES 8.6 MG TABLET PO SCH (21:30)
[2017-06-19] MEDS: SIMVASTATIN 20 MG TABLET PO SCH (21:30)
[2017-06-20] MEDS: LEVOTHYROXINE 25 MCG TABLET PO SCH (05:51)
[2017-06-20] MEDS: ACETAMINOPHEN 325 MG TABLET PO PRN (05:51)
[2017-06-20] MEDS: FUROSEMIDE 40 MG TABLET PO SCH (08:59)
[2017-06-20] MEDS: LISINOPRIL 5 MG TABLET PO SCH (08:59)
[2017-06-20] MEDS: PRIMIDONE 50 MG TABLET PO SCH ×3 (08:59→21:40)
[2017-06-20] MEDS: TRAMADOL 50 MG TABLET PO PRN (09:00)
[2017-06-20] MEDS: DOCUSATE SODIUM 100 MG CAPSULE PO SCH ×2 (09:00→21:41)
[2017-06-20] MEDS: POLYETHYL GLYCOL 3350 17gm PACKET PO SCH (09:00)
--- NOTE | 2017-06-20 12:03 | IRU Progress Note ---
- Subjective/Serverity of Illness Date: 06/20/17 Cornelio was interviewed in his room on inpatient rehabilitation. He is progressing with therapy nicely. He reports that he is able to transfer fairly independently. His granddaughter who is with him plans to live with him for a time after dismissal. His hemoglobin has remained stable. Stool for occult blood is negative. His appetite is good. Exam Vital Signs: Temperature 97.9 F 06/20/17 08:00 Pulse Rate 73 06/20/17 08:00 Respiratory Rate 18 06/20/17 08:00 Blood Pressure 124/50 06/20/17 08:00 Pulse Oximetry 92 06/20/17 08:00 Height/Weight/BMI: Height 1.83 m Weight 95.1 kg Body Mass Index 28.3 - Constitutional Present: well nourished, well developed - Routine HEENT Exam Head: Present: normocephalic Eye: Present: EOMI ENT: Present: mucous membranes moist, oropharynx clear - Routine Neck Exam Present: supple - Routine Respiratory Exam Present: CTA bilaterally. Absent: wheezes - Routine Cardiovascular Exam Present: RRR, S1, S2, murmur - Routine Abdominal Exam Present: soft, normoactive bowel sounds, non distended. Absent: tenderness - Routine Extremities Exam Present: no edema, normal capillary refill - Routine Skin Exam Present: dry, warm - Routine Neurological Exam Present: alert, oriented X3, CN II-XII intact - Routine Psychiatric Exam Present: normal affect IRU A/P (1) Status post-operative repair of closed fracture of left hip Current visit: Yes Status: Acute Patient has done well with therapy. He is progressing nicely. Pain management is adequate according to the patient. (2) Acute blood loss anemia Current visit: Yes Status: Acute Hemoglobin improved. Continue to monitor as needed. He is hemodynamically stable and without symptoms. (3) Slow transit constipation Current visit: Yes Status: Resolved (4) Atrial fibrillation Qualifiers: Atrial fibrillation type: permanent Qualified Code(s): I48.2 - Chronic atrial fibrillation Current visit: Yes Status: Chronic Remains on Pradaxa without evidence of active bleeding. (5) Foot ulcer, left Qualifiers: Non-pressure ulcer stage: limited to breakdown of skin Qualified Code(s): L97.521 - Non-pressure chronic ulcer of other part of left foot limited to breakdown of skin Current visit: No Status: Chronic DVT Prophylaxis: Pradaxa Resuscitation Status: Full Code - Course Hospital Course: Jakob Jessica MD: 06/17/17 11:19 Hemoglobin down to 9.3. Repeat hemoglobin tomorrow. Pain management adequate. Tolerating Pradaxa adequately. 06/18/17 10:15 Progressing with therapy. Hemoglobin improved to 9.9. 06/20/17 12:03 Patient has done well with therapy. Stool negative for Hemoccult. Pain management adequate. - Interventions to Obtain Goals PT Treatment Plan: Balance/Proprioception, Functional Activities, Gait Training , Patient/Family Education, Therapeutic Exercise OT Treatment Plan: ADL (Basic Care), Balance Training, IADL, Pt./Family Education, Ther. Exercise for ADL
--- NOTE | 2017-06-20 13:31 | IRU Team Meeting ---
IRU Team Meeting - Nursing Bladder Assistive Devices Utilized:: Urinal Bladder Management Level of Assist: Stand By Assist/Supervision Bladder Frequency of Accidents: No accidents Number of Bladder Accidents: 0 Bowel Assistive Devices Utilized:: Medication Bowel Management Level of Assist: Modified Independent Bowel Frequency of Accidents: No accidents Vital Signs: Vital Signs - 24 hr 06/19/17 15:41 06/20/17 00:00 06/20/17 08:00 Temperature 98.6 F 98.3 F 97.9 F Pulse Rate 76 84 73 Respiratory Rate 18 20 18 Blood Pressure 124/55 151/75 H 124/50 Pulse Oximetry 93 100 92 Current Medications: Acetaminophen (Tylenol) 650 mg PO Q8H PRN PRN Reason: Pain Last Admin: 06/20/17 05:51 Dose: 650 mg Dabigatran (Pradaxa) 150 mg PO BID [facility] Last Admin: 06/20/17 08:59 Dose: 150 mg Docusate Sodium (Colace) 100 mg PO BID [facility] Last Admin: 06/20/17 09:00 Dose: Not Given Furosemide (Lasix 40 Mg Tab) 40 mg PO DAILY [facility] Last Admin: 06/20/17 08:59 Dose: 40 mg Levothyroxine Sodium (Synthroid) 25 mcg PO ACB [facility] Last Admin: 06/20/17 05:51 Dose: 25 mcg Lisinopril (Prinivil) 5 mg PO DAILY [facility] Last Admin: 06/20/17 08:59 Dose: 5 mg Polyethylene Glycol (Miralax) 17 gm PO DAILY [facility] Last Admin: 06/20/17 09:00 Dose: Not Given Primidone (Mysoline) 100 mg PO TID [facility] Last Admin: 06/20/17 08:59 Dose: 100 mg Senna (Senna Lax) 17.2 mg PO [facility] Last Admin: 06/19/17 21:30 Dose: Not Given Senna (Senna Lax) 17.2 mg PO DAILY PRN PRN Reason: Constipation Simvastatin (Zocor) 20 mg PO [facility] Last Admin: 06/19/17 21:30 Dose: 20 mg Tramadol HCl (Ultram) 50 - 100 mg PO Q6H PRN Last Admin: 06/20/17 09:00 Dose: 50 mg Current Medical Issues: Acute blood loss anemia, arterial ulcer left foot, atrial fibrillation on Pradaxa Comments: I certify that I personally led the interdisciplinary team meeting and agree with comments, barriers and goals indicated. Team meeting was held in the patient's room with the patient and the following family members present: patient's son Adan, patient's granddaughter Stephany Grimes's hemoglobin has stabilized at 9.9 g percent. His arterial ulcer appears to be stable. Pain management appears to be good. He has done well with therapy. His bowels are moving adequately and he is eating well. - Physical Therapy Bed, Chair, Wheelchair Transfer Assist: Stand By Assist/Supervision Ambulation Ability: Stand By Assist/Supervision Ambulation Distance: 236 Wheelchair Propulsion Ability: Stand By Assist/Supervision, 1 Person Assist Wheelchair Propulsion Distance: 223 Stair Climbing Ability: Household Exception Number of Steps Climbed: 2 Car Transfer Ability: Stand By Assist/Supervision Comments: Cornelio is a standby assist level for all functional modalities and abilities. He is able to ambulate 236 feet with standby assist to supervision level. He would likely benefit from having a bed rail at home. He is doing well with hip precautions. Additional goals include performing all transfers at modified independent level while maintaining hip precautions as well as ambulation of 200 feet using a front-wheeled walker in a modified independent level. - Occupational Therapy Eating Ability: Modified Independent Grooming Ability: Independent Bathing Ability: Stand By Assist/Supervision Upper Body Dressing Ability: Stand By Assist/Supervision Lower Body Dressing Ability: Minimal Assistance Tub Transfer Assist: Patient Unsafe/Unable Toileting Assist: Independent Toilet Transfer Assist: Stand By Assist/Supervision Comments: He has done well with occupational therapy as well. Additional goals include patient to perform dressing tasks with no verbal cues while following hip precautions along with lower body dressing at modified independent level. - Goals Physical Therapy Goals: 06/20/17 goals: 1. Modified Independent with all transfers while maintaining hip precautions. 2. Ambulate 200 ft. using FWW modified independent. Occupational Therapy Goals: OT goals 06/20/17: 1.) Lower body dressing with modified independence. 2.) Pt. to perform dressing tasks with no verbal cues while following hip precautions. - Barriers to Discharge Barriers to Attaining Goals: Other (Additional training and achievement of Modified Independent level for amb and ADL's) - Care Plan Anticipated Length of Stay (days): 3 Anticipated DC Destination: Home, Self Care I have led this team conference and agree with the plan.
[2017-06-20] MEDS: SIMVASTATIN 20 MG TABLET PO SCH (21:41)
[2017-06-20] MEDS: SENNOSIDES 8.6 MG TABLET PO SCH (21:41)
[2017-06-21] MEDS: LEVOTHYROXINE 25 MCG TABLET PO SCH ×2 (05:04→06:48)
[2017-06-21] MEDS: LISINOPRIL 5 MG TABLET PO SCH (08:30)
[2017-06-21] MEDS: FUROSEMIDE 40 MG TABLET PO SCH (08:30)
[2017-06-21] MEDS: DOCUSATE SODIUM 100 MG CAPSULE PO SCH ×2 (08:32→21:29)
[2017-06-21] MEDS: TRAMADOL 50 MG TABLET PO PRN (08:32)
[2017-06-21] MEDS: POLYETHYL GLYCOL 3350 17gm PACKET PO SCH (08:32)
[2017-06-21] MEDS: PRIMIDONE 50 MG TABLET PO SCH ×3 (09:58→21:28)
[2017-06-21] MEDS: ACETAMINOPHEN 325 MG TABLET PO PRN (12:36)
[2017-06-21] MEDS: SENNOSIDES 8.6 MG TABLET PO SCH (21:29)
[2017-06-21] MEDS: SIMVASTATIN 20 MG TABLET PO SCH (21:29)
[2017-06-22] MEDS: ACETAMINOPHEN 325 MG TABLET PO PRN (04:09)
[2017-06-22] MEDS: LEVOTHYROXINE 25 MCG TABLET PO SCH ×2 (04:09→06:11)
[2017-06-22] MEDS: PRIMIDONE 50 MG TABLET PO SCH ×3 (08:58→21:57)
[2017-06-22] MEDS: DOCUSATE SODIUM 100 MG CAPSULE PO SCH ×2 (08:58→21:57)
[2017-06-22] MEDS: FUROSEMIDE 40 MG TABLET PO SCH (08:58)
[2017-06-22] MEDS: LISINOPRIL 5 MG TABLET PO SCH (08:58)
[2017-06-22] MEDS: POLYETHYL GLYCOL 3350 17gm PACKET PO SCH (08:59)
[2017-06-22] MEDS: SIMVASTATIN 20 MG TABLET PO SCH (21:57)
[2017-06-22] MEDS: SENNOSIDES 8.6 MG TABLET PO SCH (21:57)
[2017-06-23] MEDS: LEVOTHYROXINE 25 MCG TABLET PO SCH (05:47)
[2017-06-23] MEDS: TRAMADOL 50 MG TABLET PO PRN ×2 (07:37→17:41)
[2017-06-23 07:44] VITALS: RESP 18
[2017-06-23] MEDS: FUROSEMIDE 40 MG TABLET PO SCH (08:35)
[2017-06-23] MEDS: PRIMIDONE 50 MG TABLET PO SCH ×2 (08:35→15:18)
[2017-06-23] MEDS: DOCUSATE SODIUM 100 MG CAPSULE PO SCH (08:36)
[2017-06-23] MEDS: LISINOPRIL 5 MG TABLET PO SCH (08:36)
[2017-06-23] MEDS: POLYETHYL GLYCOL 3350 17gm PACKET PO SCH (08:37)
--- NOTE | 2017-06-23 11:08 | IRU Progress Note ---
- Subjective/Serverity of Illness Date: 06/23/17 Cornelio has done well with therapy. He is progressing nicely and plans to go home later on today. He reports his bowels are moving adequately. He denies shortness of breath and denies any chest pain. He feels confident to go home at this time. Exam Vital Signs: Temperature 97.4 F 06/23/17 07:43 Pulse Rate 73 06/23/17 07:43 Respiratory Rate 18 06/23/17 07:43 Blood Pressure 136/67 06/23/17 07:43 Pulse Oximetry 100 06/23/17 07:43 Height/Weight/BMI: Height 1.83 m Weight 95.1 kg Body Mass Index 28.3 - Constitutional Present: well nourished, well developed, average body habitus, cooperative - Routine HEENT Exam Head: Present: normocephalic Eye: Present: EOMI ENT: Present: mucous membranes moist, oropharynx clear - Routine Respiratory Exam Present: CTA bilaterally. Absent: wheezes - Routine Cardiovascular Exam Present: S1, S2, murmur, irregularly irregular - Routine Abdominal Exam Present: soft, normoactive bowel sounds, non distended. Absent: tenderness - Routine Extremities Exam Present: edema (trace on left), normal capillary refill - Routine Skin Exam Present: dry, warm - Routine Neurological Exam Present: alert, oriented X3, CN II-XII intact - Routine Psychiatric Exam Present: normal affect Results IRU - Labs Labs: Hemoglobin 8.9. IRU A/P (1) Status post-operative repair of closed fracture of left hip Current visit: Yes Status: Acute Patient is doing well with regard to therapy. Pain management appears to be adequate. He is safe to go home at this time. (2) Acute blood loss anemia Current visit: Yes Status: Acute Repeat hemoglobin slightly down to 8.9. Stool Hemoccult negative. This will be followed up as an outpatient. (3) Slow transit constipation Current visit: Yes Status: Resolved (4) Atrial fibrillation Qualifiers: Atrial fibrillation type: permanent Qualified Code(s): I48.2 - Chronic atrial fibrillation Current visit: Yes Status: Chronic Patient remains on Pradaxa. (5) Foot ulcer, left Qualifiers: Non-pressure ulcer stage: limited to breakdown of skin Qualified Code(s): L97.521 - Non-pressure chronic ulcer of other part of left foot limited to breakdown of skin Current visit: No Status: Chronic DVT Prophylaxis: Pradaxa Resuscitation Status: Full Code - Course Hospital Course: Jakob Jessica MD: 06/17/17 11:19 Hemoglobin down to 9.3. Repeat hemoglobin tomorrow. Pain management adequate. Tolerating Pradaxa adequately. 06/18/17 10:15 Progressing with therapy. Hemoglobin improved to 9.9. 06/20/17 12:03 Patient has done well with therapy. Stool negative for Hemoccult. Pain management adequate. 06/23/17 11:08 Patient is stable to return home today. Hemoglobin is down about 8.9. - Interventions to Obtain Goals PT Treatment Plan: Balance/Proprioception, Functional Activities, Gait Training , Patient/Family Education, Therapeutic Exercise OT Treatment Plan: ADL (Basic Care), Balance Training, IADL, Pt./Family Education, Ther. Exercise for ADL
--- NOTE | 2017-06-23 14:47 | Discharge Summary ---
Discharge Information Date of admission: 06/16/17 13:14 Anticipated date of discharge: 06/23/17 Attending Physician: Jakob Jessica MD Consults: 06/16/17 13:24 Total Joint Outpatient Therapy [CONS] Routine Comment: Remove dressing in 2 weeks [facility] Consult [CONS] Routine Reason for consultation: Pressure ulcer left foot 06/16/17 14:43 Physician Consult [CONS] Routine Consulting Provider: Lexy Collier Reason For Exam: medical management Ordering Provider has Notified Human Resources Training Manager: No - Discharge Diagnosis (1) Status post-operative repair of closed fracture of left hip Status: Acute (2) Acute blood loss anemia Status: Acute (3) Slow transit constipation Status: Resolved (4) Atrial fibrillation Status: Chronic (5) Foot ulcer, left Status: Chronic 1. Status post-operative repair of closed fracture left hip 2. Acute blood loss anemia 3. Slow transit constipation 4. Atrial fibrillation 5. Left foot ulcer, arterial insufficiency - Laboratory Labs: 06/23/17 05:21 06/23/17 05:21 History of Present Illness HPI: Mr. Tom was admitted to the [facility] on 06/13/2017 after he had fallen the second time. The first time he had fallen was 06/07/2017 but radiograph failed to reveal evidence of fracture. Upon presentation on 2017, radiograph did reveal presence of a displaced left subcapital femoral neck fracture. He was taken to surgery by Dr. Sood on 06/15/2017 for a left hip hemiarthroplasty. The patient does have a chronic wound involving the left foot felt to be secondary to arterial ischemia. It has been slowly healing. In addition he has a history of atrial fibrillation on Pradaxa. He has a permanent pacemaker. He has moderate pulmonary hypertension. He does have evidence of acute blood loss anemia with hemoglobin dropping from 10.6 down to 9.5. Because of this patient's multiple medical problems and development of multiple functional deficits, he was felt to be a good candidate for inpatient rehabilitation where he was transferred on 06/16/2017. Hospital Course This is a general summary of the patient's hospital course. For more details refer to the complete medical record. The patient was admitted to acute inpatient rehabilitation. He was monitored carefully regarding his acute blood loss anemia. His initial hemoglobin here was 9.3 rising to 9.9 on 07-04. On the day of dismissal it was 8.9. Chemistries remained normal. He had no further evidence of active bleeding. His blood pressures remain stable with only a couple of values up into the 150 systolic range. The other values were in the 110's to 120s. He did not have evidence of worsening heart failure and he denied any chest pains. The following levels of functional competence are to be considered preliminary information. The reader is encouraged to refer to actual therapy notes and reports for specific details. He was seen by physical therapy and improved nicely. At the conclusion of therapy he was able to transfer with standby assistance. He was able to ambulate with a front wheeled walker at 358 feet. His safety awareness appears to be adequate. He was able to climb 4 steps with standby assistance only. He was seen by occupational therapy and improved nicely. At the conclusion of therapy he was able to perform upper body dressing independently and lower body dressing with standby assistance only. Patient was felt to be stable for dismissal back to his home. He will pursue outpatient therapy with his son and family. He was sent home with a prescription for tramadol 50 mg #30 with no refills. It is noted that his hemoglobin while on inpatient rehabilitation was 9.3 then 9.9 and on the day of dismissal 06/23/2017 it was 8.9. His stools were negative for Hemoccult. His hemoglobin will need to be followed up as an outpatient. He will follow-up with Dr. Sood and Dr. Choudhury. Hospital course: 06/19/17 Hemoglobin improved from 9.3-9.9, and distal was negative for occult blood. He does not have any symptoms of anemia. He is hemodynamically stable. Constipation has resolved and now he is having frequent loose stools. Dr. Young has already adjusted dosing frequency. 4. Stool softeners. Repeat CBC and BMP on June 23. 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 Estefanía Choudhury on 07/07/17 at 2:45 pm for Hosp. follow-up. [address] [place] [id number]) Mian Sood MD [Physician] - (Mian Sood MD [Physician] - (Will need follow up 2 weeks after being discharged from IRU) ) Patience Instructions: Fall Prevention for Older Adults (GEN) Prescriptions: New PEG 3350 17gm PACKET [Miralax] 17 gm PO DAILY packet Sennosides [Senna Lax] 17.2 mg PO DAILY PRN tab PRN Reason: Constipation Tramadol [Ultram] 50 mg PO Q6H PRN #30 tab PRN Reason: Pain Continue Simvastatin [Zocor] 20 mg PO HS #0 Glucosamine/D3/Boswellia Lulu [Osteo Bi-Flex Caplet] 1 each PO DAILY #0 Levothyroxine Sodium 25 mcg PO DAILY #0 Vitamin B Complex Vit C No.4 [Super B Complex] 1 tab PO DAILY Multivit-Min/FA/Lycopen/Lutein [Centrum Silver Tablet] 1 each PO DAILY Cholecalciferol (Vitamin D3) [Vitamin D3] 2,000 unit PO DAILY Primidone [Mysoline] 100 mg PO TID Dabigatran [Pradaxa] 150 mg PO BID Lisinopril [Zestril] 5 mg PO DAILY Furosemide [Lasix] 40 mg PO DAILY - Disposition 01 Discharged Home, Self-Care - Dismissal Complete Discharge Instructions are:: Complete
--- NOTE | 2017-06-23 14:53 | Letter to Referring Physician ---
Dear Dr. Choudhury, This is a brief note to bring you up-to-date on the status of Cornelio Tom and his stay on the acute inpatient rehabilitation unit at [facility]. As you are likely aware, this patient was admitted to the [facility] on 06/13/17 for closed fracture of the left hip. The patient was stabilized while on the acute level and admitted to inpatient rehabilitation unit at [facility] on June 16, 2017. While on inpatient rehabilitation, this patient was seen by occupational therapy and physical therapy and improved overall in their functional ability. We also monitored and managed the patient's acute blood loss anemia while on Acute Rehab. Please see a copy of the history and physical examination as well as discharge summary faxed separately for further details. Please note that his admission hemoglobin on acute was 10.6. It was 9.3, then 9.9, and finally 8.9 as of 06/23/2017 on inpatient rehabilitation. Stool was negative for Hemoccult. This will need to be followed up as an outpatient. Finally, please note that I gave him a prescription for tramadol 50 mg #30 with no refills at the time of dismissal. Thank you for allowing us to be involved in this nice patient's care. Please contact me directly should you have any questions regarding their stay on the inpatient rehabilitation unit. Sincerely, Jakob Jessica M.D.
[2017-06-23 18:32] VITALS: BP 121/63; PULSE 80; TEMP 98.2; O2SAT 94
== END 2017-06-23 18:20 | disposition home health service (06) | DRG 560 ==
PROVIDERS: ADMIT Internal Medicine; ATTEND Internal Medicine